=== PATIENT | female | born 1970 | race Caucasian/White ===

== ENCOUNTER 2020-05-11 16:13 | Inpatient (IN) | payer OTHER ==
[2020-05-11] MEDS ORDERED: LORazepam 2 MG/ML INJ IV PRN ×3 (16:46)
[2020-05-11] MEDS ORDERED: THIAMINE 100 MG/ML 2 ML VIAL IM STA (16:46)
[2020-05-11] MEDS ORDERED: SODIUM CHLORIDE 0.9% 1,000 ML with MVI, ADULT NO.4 WITH VIT K 10 ML, THIAMINE 100 MG, F... IV ONE ×4 (16:46)
--- NOTE | 2020-05-11 16:46 | ED ---
General Adult HPI - General Chief complaint: Abdominal Pain Stated complaint: GI Bleed Time Seen by Provider: 05/11/20 16:15 Source: patient, EMS, RN notes reviewed, old records reviewed Mode of arrival: EMS Limitations: no limitations - History of Present Illness Initial comments: This is a 49-year-old female presents emergency department from [facility]. Patient presented thereafter she had some hematemesis per patient is an occasional drinker but she does have a history of cirrhosis and ascites in the past. Patient states currently she has no symptoms. CAT scan it came with her didn't mention varices as well as some possible blood in the stomach. Patient states she did drink a little bit yesterday woke up today vomited times one and it was bright red blood and she states is quite a bit. Patient denies any chest pain difficulty breathing shortest breath. Patient was tachycardic at the other hospital and remains tachycardic currently. Patient denies any recent fever chills or cough. Patient denies any abdominal pain. Patient denies any recent diarrhea. - Related Data Allergies Allergy/AdvReac Type Severity Reaction Status Date / Time No Known Allergies Allergy Verified 05/11/20 16:27 Review of Systems ROS Statement: Those systems with pertinent positive or pertinent negative responses have been documented in the HPI. ROS Other: All systems not noted in ROS Statement are negative. Past Medical History Additional Past Medical History / Comment(s): liver disease, stage three 3 renal disease, History of Any Multi-Drug Resistant Organisms: None Reported Past Surgical History: No Surgical Hx Reported Past Psychological History: No Psychological Hx Reported Smoking Status: Current every day smoker Past Alcohol Use History: Occasional Past Drug Use History: None Reported General Exam - General Exam Comments Initial Comments: GENERAL: Patient is well-developed and well-nourished. Patient is nontoxic and well- hydrated and is in no acute distress. ENT: Neck is soft and supple. No significant lymphadenopathy is noted. Oropharynx is clear. Moist mucous membranes. Neck has full range of motion without eliciting any pain. EYES: The sclera were anicteric and conjunctiva were pink and moist. Extraocular movements were intact and pupils were equal round and reactive to light. Eyelids were unremarkable. PULMONARY: Unlabored respirations. Good breath sounds bilaterally. No audible rales rhonchi or wheezing was noted. CARDIOVASCULAR: Patient is tachycardic at 130 bpm ABDOMEN: Soft and nontender with normal bowel sounds. No palpable organomegaly was noted. There is no palpable pulsatile mass. SKIN: Skin is clear with no lesions or rashes and otherwise unremarkable. NEUROLOGIC: Patient is alert and oriented x3. Cranial nerves II through XII are grossly intact. Motor and sensory are also intact. Normal speech, volume and content. Symmetrical smile. MUSCULOSKELETAL: Normal extremities with adequate strength and full range of motion. No lower extremity swelling or edema. No calf tenderness. LYMPHATICS: No significant lymphadenopathy is noted PSYCHIATRIC: Normal psychiatric evaluation. Limitations: no limitations Course Vital Signs 05/11/20 05/11/20 16:16 16:34 Temperature 98.9 F Pulse Rate 125 H 123 H Respiratory 18 Rate Blood Pressure 121/70 O2 Sat by Pulse 97 Oximetry Medical Decision Making - Medical Decision Making I spoke with Dr. Rodriguez he agreed to admit the patient admitted the patient I wrote admitting orders did serial CBCs and I consult Dr. Dewitt and I put the patient on a CIWA protocol. Patient was also given fluids in the emergency department. Disposition Clinical Impression: Hematemesis, Cirrhosis, Ascites Disposition: ADMITTED IP TO THIS HOSP Referrals: None,Stated [Primary Care Provider] - 1-2 days Time of Disposition: 16:46
[2020-05-11] MEDS ORDERED: SODIUM CHLORIDE 0.9% 1,000 ML IV ONE (16:47)
[2020-05-11] MEDS ORDERED: LORazepam 2 MG/ML INJ IV STA (16:47)
[2020-05-11 17:18] LABS: Basophils # (A) 0.1 k/uL (0-0.2); Basophils % (A) 1 %; Eosinophils # (A) 0.1 k/uL (0-0.7); Eosinophils % (A) 1 %; HGB 9.5 gm/dL (11.4-16.0); Lymphocytes % (A) 10 %; MCH 31.5 pg (25.0-35.0); MCHC 31.5 g/dL (31.0-37.0); Macrocytosis Slight; Mean Platelet Volume 10.2; Monocytes # (A) 0.6 k/uL (0-1.0); Monocytes % (A) 6 %; Neutrophils # (A) 7.6 k/uL (1.3-7.7); Neutrophils % (A) 81 %; Platelet Count 212 k/uL (150-450); RBC 3.01 m/uL (3.80-5.40); RDW 15.8 % (11.5-15.5); WBC 9.4 k/uL (3.8-10.6)
[2020-05-11] MEDS ORDERED: HYDROmorphone 0.5 MG/0.5 ML SYRINGE IVP PRN (18:36)
[2020-05-11] MEDS ORDERED: TEMAZEPAM 15 MG CAP PO PRN (18:36)
--- NOTE | 2020-05-11 19:47 | HP ---
HISTORY AND PHYSICAL DATE OF SERVICE: 05/11/2020 CHIEF COMPLAINT: Abdominal pain. HISTORY OF PRESENT ILLNESS: This 49-year-old woman with a past medical history of chronic liver disease since 2018, history of stage III renal disease, being followed by no primary physician in the outpatient setting, apparently has a history of some alcohol intake. The patient today presented to [facility] with complaints of upper GI bleeding, about half a cup of blood, which was , and the patient underwent a CT scan which showed features of cirrhosis of the liver and ascites as well as esophageal varices. The patient was transferred to [facility] for further evaluation and treatment. There is no history of any fever, rigor or chills. No history of headache, loss of consciousness, seizures. Hemoglobin here is 9.5. PAST MEDICAL HISTORY: History of chronic liver disease, history of stage III renal disease. MEDICATIONS: Aldactone 25 mg daily p.r.n. ALLERGIES: NONE. FAMILY HISTORY: No history of heart disease or strokes in the family. SOCIAL HISTORY: Occasional alcohol and previous history of smoking. REVIEW OF SYSTEMS: ENT: No diminished hearing. No diminished vision. CARDIOVASCULAR SYSTEM: No angina, palpitations. RESPIRATORY SYSTEM: As mentioned earlier. GI: No nausea, vomiting. : No dysuria or retention. NERVOUS SYSTEM: No numbness, weakness. ALLERGY/IMMUNOLOGY: No asthma, hayfever. MUSCULOSKELETAL: As mentioned earlier. HEMATOLOGY/ONCOLOGY: No history of anemia. ENDOCRINE: No history of diabetes, hypothyroidism. CONSTITUTIONAL: As mentioned earlier. DERMATOLOGY: Negative. RHEUMATOLOGY: Negative. PSYCHIATRY: As mentioned earlier. PHYSICAL EXAMINATION: Patient is alert and oriented x3. Pulse is 125, blood pressure 121/70, respiration 18, temperature 98.9, pulse ox 97% on room air. HEENT: Conjunctivae pale. Oral mucosa moist. NECK: No jugular venous distention. No carotid bruit. No lymph node enlargement. CARDIOVASCULAR SYSTEM: S1, S2 muffled. No S3. No S4. RESPIRATORY SYSTEM: Breath sounds diminished at the bases. No rhonchi. No crackles. ABDOMEN: Soft, obese. No mass palpable. Flanks are dull. No significant ascites detected. LEGS: No edema. No swelling. NERVOUS SYSTEM: Higher functions as mentioned earlier. Moves all 4 limbs. No focal motor or sensory deficit. LYMPHATICS: No lymph node palpable in neck, axillae or groin. SKIN: No ulcer, rash, bleeding. JOINTS: No active deforming arthropathy. LABS: WBC 9.4, hemoglobin 9.5. ASSESSMENT: 1. Acute gastrointestinal bleed, possibly esophageal variceal bleeding with acute blood loss anemia secondary to cirrhosis of liver. 2. Cirrhosis liver, possibly secondary to ETOH. 3. History of stage III renal disease. 4. History of nicotine dependence. 5. History of ETOH. RECOMMENDATIONS AND DISCUSSION: In this 49-year-old woman who presented with multiple complex medical issues, we will monitor the patient closely. I would recommend proton pump inhibitors. Otherwise, gastroenterology consultation. Possible endoscopies. Repeat CBC q.6 and transfuse if the patient's hemoglobin is less than 7. Prognosis is guarded because of multiple complex medical issues. Recommend ETOH cessation. We will watch for alcohol withdrawal symptoms. I also recommend outpatient rehab per Social Work services. Prognosis guarded because of multiple complex medical problems. Further recommendations to follow. I would recommend that the patient follow up with a primary physician on a regular basis as well. MMJESSICAL / LUCYN: [id number] / MTDD
[2020-05-11] MEDS: SODIUM CHLORIDE 0.9% 1,000 ML IV SCH (22:05)
[2020-05-11] MEDS: PANTOPRAZOLE 40 MG/10 ML VIAL IVP SCH (22:06)
[2020-05-11 23:20] LABS: Appearance,Urine Clear (Clear); Bilirubin,Urine Negative (Negative); Blood,Urine Negative (Negative); Color,Urine Yellow; Glucose,Urine (UA) Negative (Negative); Ketones,Urine Trace (Negative); Leukocyte Esterase,Urine Negative (Negative); Nitrite,Urine Negative (Negative); Protein,Urine Negative (Negative); Specific Gravity,Urine 1.023 (1.001-1.035); Urobilinogen,Urine <2.0 mg/dL (<2.0)
[2020-05-11 23:25] LABS: HCT 27.3 % (34.0-46.0); HGB 8.8 gm/dL (11.4-16.0); MCH 33.1 pg (25.0-35.0); MCHC 32.3 g/dL (31.0-37.0); MCV 102.5 fL (80.0-100.0); Macrocytosis Moderate; Platelet Count 198 k/uL (150-450); RBC 2.66 m/uL (3.80-5.40); WBC 8.2 k/uL (3.8-10.6)
[2020-05-11 23:47] LABS: ALT 17 U/L (4-34); AST 78 U/L (14-36); African American GFR (CKD) >90 (>60 ml/min/1.73 sqM); Albumin 2.6 g/dL (3.5-5.0); Alkaline Phosphatase 89 U/L (38-126); Anion Gap 6 mmol/L; Blood Urea Nitrogen 22 mg/dL (7-17); Calcium 7.9 mg/dL (8.4-10.2); Carbon Dioxide 26 mmol/L (22-30); Chloride 103 mmol/L (98-107); Glucose 82 mg/dL (74-99); Non-African American GFR(CKD) >90 (>60 ml/min/1.73 sqM); Potassium 3.9 mmol/L (3.5-5.1); Sodium 135 mmol/L (137-145); Total Bilirubin 2.1 mg/dL (0.2-1.3); Total Protein 6.1 g/dL (6.3-8.2)
[2020-05-12 05:57] LABS: Anisocytosis Slight; Basophils # (A) 0.1 k/uL (0-0.2); Basophils % (A) 1 %; Eosinophils # (A) 0.2 k/uL (0-0.7); Eosinophils % (A) 3 %; HCT 25.3 % (34.0-46.0); HGB 8.7 gm/dL (11.4-16.0); Hypochromasia Slight; Lymphocytes # (A) 1.5 k/uL (1.0-4.8); Lymphocytes % (A) 21 %; MCH 35.3 pg (25.0-35.0); MCHC 34.5 g/dL (31.0-37.0); MCV 102.4 fL (80.0-100.0); Macrocytosis Moderate; Mean Platelet Volume 8.2; Monocytes # (A) 0.5 k/uL (0-1.0); Monocytes % (A) 7 %; Neutrophils # (A) 5.1 k/uL (1.3-7.7); Neutrophils % (A) 68 %; Platelet Count 179 k/uL (150-450); RBC 2.47 m/uL (3.80-5.40); RDW 16.5 % (11.5-15.5); WBC 7.4 k/uL (3.8-10.6)
[2020-05-12] MEDS: THIAMINE 100 MG TAB PO SCH ×2 (06:06→17:19)
[2020-05-12 06:10] LABS: African American GFR (CKD) >90 (>60 ml/min/1.73 sqM); Anion Gap 6 mmol/L; Blood Urea Nitrogen 22 mg/dL (7-17); Calcium 7.9 mg/dL (8.4-10.2); Carbon Dioxide 26 mmol/L (22-30); Chloride 104 mmol/L (98-107); Glucose 73 mg/dL (74-99); Non-African American GFR(CKD) 90 (>60 ml/min/1.73 sqM); Potassium 3.7 mmol/L (3.5-5.1); Sodium 136 mmol/L (137-145)
--- NOTE | 2020-05-12 07:36 | XR ---
EXAMINATION TYPE: XR chest 1V portable DATE OF EXAM: 05/12/2020 COMPARISON: None INDICATION: CHF, short of breath TECHNIQUE: Single frontal view of the chest is obtained. FINDINGS: The heart size is normal. The pulmonary vasculature is normal. The lungs are clear. IMPRESSION: 1. No acute pulmonary process.
[2020-05-12] MEDS: NICOTINE 14MG/24HR PATCH TRANSDERM SCH (09:01)
[2020-05-12] MEDS: PANTOPRAZOLE 40 MG/10 ML VIAL IVP SCH ×2 (09:01→21:38)
[2020-05-12 09:10] LABS: INR 1.4 (<1.2); Prothrombin Time 14.1 sec (9.0-12.0)
--- NOTE | 2020-05-12 16:14 | PN ---
PROGRESS NOTE DATE OF SERVICE: 05/12/2020 This 49-year-old woman who was admitted with upper GI bleed had possible underlying cirrhosis of the liver. A chest x-ray which was reviewed personally by me showed no acute abnormality. Gastroenterology following the patient closely. Recommending possible endoscope tomorrow. Hemoglobin is 8.7. INR is 1.5. AST, ALT is also noted elevated. PHYSICAL EXAMINATION: Alert and oriented x3. Pulse is 93, blood pressure 91/48, respirations 16, temperature 98.2, pulse ox 97% on room air. HEENT: Conjunctivae pale. Oral mucosa moist. NECK: No jugular venous distention. No carotid bruit. No lymph node enlargement. CARDIOVASCULAR: S1, S2 muffled. RESPIRATORY: Breath sounds diminished at the bases. No rhonchi. No crackles. ABDOMEN: Soft, obese, nontender. No mass palpable. LEGS: No edema. No swelling. NERVOUS SYSTEM: No focal deficits LABS: Hemoglobin 8.7, sodium 136. Other labs are noted. ASSESSMENT: 1. Acute gastrointestinal bleed, possibly esophageal variceal bleeding with acute blood loss anemia secondary to cirrhosis liver. 2. Cirrhosis of the liver, possibly secondary to EtOH. 3. History of stage 3 renal disease. 4. History of nicotine dependence. 5. History of EtOH. 6. Hyponatremia. 7. Elevated bilirubin and AST with alcoholic hepatitis. 8. Hypoalbuminemia with mild protein calorie malnutrition. 9. Mild coagulopathy secondary to chronic liver disease. 10.Increased MCV. 11.FULL CODE. RECOMMENDATIONS AND DISCUSSION: This 49-year-old woman who presented with multiple complex medical issues, we will monitor the patient closely. Continue CIWA protocol. Continue the rest of medication. Endoscopies. Monitor hemoglobin closely. Prognosis guarded. Further recommendations to follow. MMODL / IJN: [id number] /
--- NOTE | 2020-05-12 16:20 | CONS ---
CONSULTATION DATE OF SERVICE: May 12, 2020 REASON FOR CONSULTATION: Acute upper gastrointestinal bleed. HISTORY OF PRESENT ILLNESS: The patient is a 49-year-old pleasant white female with history of heavy alcohol abuse in the past, diagnosed with alcoholic cirrhosis of the liver 2 years ago, presents to the hospital with an episode of hematemesis yesterday. She thinks she had moderate amount of bright red blood in the emesis and she became concerned and hence came to the emergency room and subsequently admitted to the hospital for further evaluation. She did have a CT of the abdomen and pelvis done at [facility] that showed evidence of liver cirrhosis with a 1 cm lesion in the right lobe of the liver and evidence of esophageal varices. The patient never had GI bleed in the past. She has quit drinking about 2 years ago, but lately has been doing on and off once a week or so. She reports no abdominal pain. No further episodes of nausea, vomiting since being in the hospital. Last hemoglobin was 9.5 g/dL. PAST MEDICAL HISTORY: Cirrhosis of the liver related to alcohol use, chronic kidney disease. PAST SURGICAL HISTORY: Paracentesis 2 years ago. MEDICATIONS AT HOME: Aldactone 25 mg daily as needed. ALLERGIES: None. SOCIAL HISTORY: No smoking. Alcohol use intermittently as described above. Has remote history of heavy alcohol use which she quit in 2018. REVIEW OF SYSTEMS: CARDIOPULMONARY: No chest pain or shortness of breath. GENITOURINARY: No dysuria or hematuria. MUSCULOSKELETAL: Unremarkable. SKIN: Unremarkable. ENDOCRINE: Unremarkable. PSYCHIATRIC: Unremarkable. NEUROLOGY: Unremarkable. ENT/VISION: Unremarkable. HEMATOLOGY: Mild anemia. CONSTITUTIONAL: No recent weight loss. No fever, chills, night sweats. PHYSICAL EXAMINATION: Blood pressure 117/72, pulse rate 95, temperature 98.2. HEENT EXAMINATION: Unremarkable. Conjunctivae pale. Sclerae anicteric. Oral cavity, no lesions. NECK: No JVD or lymph node enlargement. CHEST: Clear to auscultation. HEART: Regular rate and rhythm. ABDOMEN: Soft, it was nontender, nondistended. Bowel sounds are positive. No organomegaly. EXTREMITIES: No pedal edema. NEURO: She is alert and oriented x3. No focal deficits. LABS: WBC 9.4, hemoglobin 9.5, platelets 212. INR 1.4. Platelets are 179. BUN 22, creatinine 0.78. AST, ALT 78 and 17 respectively. T bilirubin 2.1 and alkaline phosphatase is 89. Today, hemoglobin is 8.7. IMPRESSION: 1. Acute upper gastrointestinal bleed in this lady with history of cirrhosis of the liver secondary to alcohol use. Rule out esophageal variceal bleeding. Patient had only one episode of hematemesis. Hemoglobin stable at 8.7 g/dL. 2. Macrocytic anemia. 3. Mild coagulopathy secondary to chronic liver disease. 4. Elevated LFTs and mild jaundice secondary to alcoholic liver disease. RECOMMENDATIONS: 1. Start her on a clear liquid diet. 2. Continue Protonix 40 mg twice daily. 3. Schedule for EGD tomorrow. Discussed with the patient, risks, benefits and complications and she is agreeable to it. 4. Monitor CBC and transfuse if the hemoglobin is less than 7. 5. Abstinence from alcohol. 6. Will follow with you closely. Thank you for this consultation. PARISHL / IJN: [id number] /
[2020-05-12 20:36] LABS: Hepatitis A Antibody IgM Non-Reactive (Non-Reactive); Hepatitis B Core IgM Non-Reactive (Non-Reactive); Hepatitis B Surface Antigen Non-Reactive (Non-Reactive); Hepatitis C IgG Antibody Non-Reactive (Non-Reactive)
[2020-05-12] MEDS: SODIUM CHLORIDE 0.9% 1,000 ML IV SCH (21:38)
[2020-05-12] MEDS: traMADol 50 MG TAB PO PRN (21:39)
[2020-05-13] MEDS: THIAMINE 100 MG TAB PO SCH ×2 (04:03→17:24)
[2020-05-13] MEDS ORDERED: PROPOFOL 10 MG/ML 20 ML VIAL IV ONE (06:55)
[2020-05-13] MEDS ORDERED: LIDOCAINE 1% INJ 10MG/ML (20 ML MDV) ONE (06:55)
[2020-05-13] MEDS ORDERED: IV FLUID CONTINUATION 1,000 ML IV ONE (07:11)
--- NOTE | 2020-05-13 07:23 | P.PCN ---
Date of Procedure: 05/13/20 Procedure(s) Performed: BRIEF HISTORY: Patient is a 49-year-old, pleasant, white female scheduled for an upper endoscopy as a part of evaluation of acute upper GI bleed. She was admitted to the hospital with severe hematemesis. History of liver cirrhosis diagnosed 2 years ago related to alcohol use. . PROCEDURE PERFORMED: Esophagogastroduodenoscopy with biopsy. PREOPERATIVE DIAGNOSIS: Acute upper GI bleed. IV sedation per anesthesia. PROCEDURE: After informed consent was obtained, the patient was brought into the endoscopy unit. IV sedation was administered by Anesthesia under continuous monitoring. Initially the Olympus GIF-140 video endoscope was inserted into the mouth. Esophagus intubated without any difficulty. It was gradually advanced into the stomach and duodenum and carefully examined. The bulb and the second part of the duodenum appeared normal. The scope at this time was withdrawn to the stomach, adequately insufflated with air, and upon careful examination, mucosa of the antrum, body, had mild gastritis and biopsies were done from this area. The cardia and the fundus appeared normal. The scope was then withdrawn into the esophagus. The GE junction was located at 34 cm from the incisors. Small to moderate size hiatal hernia noted. There was evidence of small nonbl eeding esophageal varices and LA grade a reflux esophagitis and the patient tolerated the procedure well. IMPRESSION: 1. No active upper GI bleeding. 2. Small nonbleeding esophageal varices. 3. LA grade B reflux esophagitis and small hiatal hernia. 4. Mild antral gastritis. RECOMMENDATIONS: The findings of this examination were discussed with the patient. She was advised to follow with the biopsy results. Diet will be advanced as tolerated. Continue with Protonix 40 mg daily. She can be discharged home today. Outpatient follow-up in 2-3 weeks
[2020-05-13 07:58] LABS: ALT 15 U/L (4-34); AST 78 U/L (14-36); African American GFR (CKD) >90 (>60 ml/min/1.73 sqM); Albumin 2.3 g/dL (3.5-5.0); Alkaline Phosphatase 85 U/L (38-126); Anion Gap 4 mmol/L; Blood Urea Nitrogen 14 mg/dL (7-17); Calcium 7.8 mg/dL (8.4-10.2); Carbon Dioxide 24 mmol/L (22-30); Chloride 105 mmol/L (98-107); Glucose 74 mg/dL (74-99); Non-African American GFR(CKD) >90 (>60 ml/min/1.73 sqM); Potassium 3.3 mmol/L (3.5-5.1); Sodium 133 mmol/L (137-145); Total Bilirubin 2.2 mg/dL (0.2-1.3); Total Protein 5.5 g/dL (6.3-8.2)
[2020-05-13 08:10] LABS: Anisocytosis Slight; Basophils % (A) 1 %; Eosinophils # (A) 0.2 k/uL (0-0.7); Eosinophils % (A) 4 %; HGB 7.9 gm/dL (11.4-16.0); Lymphocytes # (A) 1.2 k/uL (1.0-4.8); Lymphocytes % (A) 19 %; MCH 32.5 pg (25.0-35.0); MCHC 31.5 g/dL (31.0-37.0); Macrocytosis Moderate; Mean Platelet Volume 10.9; Monocytes # (A) 0.4 k/uL (0-1.0); Monocytes % (A) 7 %; Neutrophils # (A) 4.2 k/uL (1.3-7.7); Neutrophils % (A) 68 %; Platelet Count 178 k/uL (150-450); RBC 2.43 m/uL (3.80-5.40); WBC 6.2 k/uL (3.8-10.6)
[2020-05-13] MEDS: NICOTINE 14MG/24HR PATCH TRANSDERM SCH (10:19)
[2020-05-13] MEDS: PANTOPRAZOLE 40 MG/10 ML VIAL IVP SCH ×2 (10:19→20:55)
[2020-05-13] MEDS ORDERED: POTASSIUM CHLORIDE ER 20 MEQ TAB.ER PO STA (10:30)
[2020-05-13] MEDS: SODIUM CHLORIDE 0.9% 1,000 ML IV SCH (12:06)
--- NOTE | 2020-05-13 15:57 | PN ---
PROGRESS NOTE DATE OF SERVICE: 05/13/2020 This 49-year-old woman who was admitted with upper GI bleed and multiple other medical problems underwent EGD by Dr. Tucker, showed no active GI bleeding, small nonbleeding esophageal varices noted and grade B reflux esophagitis, mild antral gastritis also noted. No chest pain. No palpitations. No fever. PHYSICAL EXAMINATION: Alert and oriented x3. Pulse 83, blood pressure 99/62, respiration 18, temperature 97.7, pulse ox 95% on room air. HEENT: Conjunctivae normal. NECK: No jugular venous distention. CARDIOVASCULAR: S1, S2 muffled. RESPIRATORY: Breath sounds diminished at the bases. No rhonchi, no crackles. ABDOMEN: Soft, nontender. No mass palpable. LEGS: No edema. No swelling. NERVOUS SYSTEM: No focal deficits. LABS: Hemoglobin 7.9, sodium 133, potassium 3.3, calcium 7.8. Bilirubin is 2.2. ASSESSMENT: 1. Acute gastrointestinal bleed, possibly cellulitis with bleeding with acute blood loss anemia secondary to cirrhosis, status post EGD. 2. EGD showing esophageal varices and grade B reflux esophagitis and mild antral gastritis. 3. Acute blood loss anemia. 4. Cirrhosis of the liver, possibly secondary to EtOH. 5. History of stage 3 renal disease. 6. History of nicotine dependence. 7. History of EtOH. 8. Hyponatremia. 9. Elevated bilirubin and AST, alcoholic hepatitis. 10.Hypoalbuminemia with mild protein calorie malnutrition. 11.Mild coagulopathy secondary to chronic liver disease. 12.Hypocalcemia. 13.Increased MCV. 14.FULL CODE. RECOMMENDATIONS AND DISCUSSION: I recommend to continue current medication, continue monitoring and symptomatic treatment. Otherwise, at this time I would recommend continue with current medications. I would also recommend one unit transfusion for symptomatic anemia. Hemoglobin has dropped to 7.9. The prognosis guarded. Further recommendations to follow. MMODL / IJN: [id number] /
[2020-05-13] MEDS ORDERED: FUROSEMIDE 10 MG/ML 2 ML VIAL IV ONE (17:22)
--- NOTE | 2020-05-13 19:46 | MR ---
EXAMINATION TYPE: MR liver wo/w con DATE OF EXAM: 05/13/2020 COMPARISON: CT scan 03/10/2021. HISTORY: Cirrhosis, liver lesion CONTRAST: Standard multiplanar, multisequence MRI departmental protocol utilizing 6.5 mL intravenous Gadavist g adolinium contrast. Multiplanar multiecho imaging of the abdomen was performed without and with IV contrast gadolinium 6. 5 mL. liver shows no focal defect. The bile ducts are not dilated. There are multiple gallstones. Gallbladd er measures 3.60 m in diameter. There is no gallbladder wall thickening. There is no evidence of panc reatic mass. There is bilateral pleural effusions. Heart is probably enlarged. There is moderate abdo cesar ascites fluid. Pancreatic duct is not dilated. The spleen appears intact. Liver measures 16.5 c m in length. Kidneys have normal size. There is no hydronephrosis. There is no sign of retroperitoneal adenopathy. There appears to be some proximal small bowel wall thickening. IMPRESSION: No focal liver defect. No evidence of a discrete liver mass. No dilated ducts. Abdominal ascites and bilateral pleural effusions. Pleural fluid appears new compared to old exam. As cites probably not changed. Cholelithiasis. Small bowel mild wall thickening suggestive of some nonspecific enteritis.
[2020-05-13] MEDS: traMADol 50 MG TAB PO PRN (20:55)
[2020-05-14] MEDS: SODIUM CHLORIDE 0.9% 1,000 ML IV SCH (06:23)
[2020-05-14] MEDS: THIAMINE 100 MG TAB PO SCH (06:23)
[2020-05-14 07:12] LABS: Anisocytosis Slight; Basophils # (A) 0.1 k/uL (0-0.2); Basophils % (A) 1 %; Eosinophils # (A) 0.4 k/uL (0-0.7); Eosinophils % (A) 5 %; HCT 27.4 % (34.0-46.0); HGB 8.9 gm/dL (11.4-16.0); Lymphocytes # (A) 1.1 k/uL (1.0-4.8); Lymphocytes % (A) 17 %; MCHC 32.5 g/dL (31.0-37.0); MCV 101.4 fL (80.0-100.0); Macrocytosis Moderate; Mean Platelet Volume 9.9; Monocytes # (A) 0.5 k/uL (0-1.0); Monocytes % (A) 8 %; Neutrophils # (A) 4.4 k/uL (1.3-7.7); Neutrophils % (A) 68 %; Platelet Count 191 k/uL (150-450); WBC 6.5 k/uL (3.8-10.6)
[2020-05-14 07:20] LABS: African American GFR (CKD) >90 (>60 ml/min/1.73 sqM); Anion Gap 5 mmol/L; Blood Urea Nitrogen 10 mg/dL (7-17); Calcium 7.9 mg/dL (8.4-10.2); Carbon Dioxide 26 mmol/L (22-30); Chloride 103 mmol/L (98-107); Glucose 75 mg/dL (74-99); Non-African American GFR(CKD) >90 (>60 ml/min/1.73 sqM); Potassium 3.1 mmol/L (3.5-5.1); Sodium 134 mmol/L (137-145)
[2020-05-14] MEDS: POTASSIUM CHLORIDE ER 20 MEQ TAB.ER PO SCH ×2 (08:42→10:07)
[2020-05-14] MEDS: NICOTINE 14MG/24HR PATCH TRANSDERM SCH (08:42)
[2020-05-14] MEDS: PANTOPRAZOLE 40 MG/10 ML VIAL IVP SCH (08:42)
[2020-05-14 08:47] VITALS: BP 94/59; PULSE 84; RESP 14; TEMP 98.3
[2020-05-14] MEDS ORDERED: POTASSIUM CHLORIDE ER 20 MEQ TAB.ER PO STA (11:49)
--- NOTE | 2020-05-14 21:09 | DS ---
DISCHARGE SUMMARY DATE OF SERVICE: 05/14/2020 FINAL DIAGNOSES: 1. Acute gastrointestinal bleed, possibly secondary to variceal bleeding and acute blood loss anemia. 2. Status post EGD showing esophageal varices and grade B reflux esophagitis and mild antral gastritis. 3. Cirrhosis of the liver, possibly secondary to ETOH. 4. History of stage III renal disease. 5. History of nicotine dependence. 6. Hyponatremia. 7. History of ETOH. 8. Increased bilirubin, AST, alcoholic hepatitis. 9. Hypoalbuminemia with mild protein calorie malnutrition. 10.Mild coagulopathy secondary to chronic liver disease. 11.Hypocalcemia. 12.Increased MCV. 13.FULL CODE. DISCHARGE DISPOSITION: The patient being discharged in stable with guarded prognosis. HISTORY OF PRESENT ILLNESS: This 49-year-old woman with past medical history of multiple medical problems admitted with GI bleed. Patient treated symptomatically. EGD showed esophageal varices, but no active bleeding. Liver MRI was noted and hemoglobin was closely monitored which remained stable at 8.9 at this time. The patient was transfused 1 unit because of concerns of gastrointestinal bleed. Patient improved significantly. Potassium 3.9. Recommend outpatient followup with Dr. Ivan Brito in [place]. On exam, vitals signs stable. Cardiovascular S1, S2. Abdomen soft. Nervous system: No focal deficits. DISCHARGE ADVICE AND MEDICATIONS: 1. Diet is cardiac. 2. Activity limited until followup. 3. Follow up with Dr. Petr Tucker in 2-3 days. 4. Follow up with Dr. Ivan Brito. 5. CBC, BMP. DISCHARGE MEDICATIONS: 1. Aldactone 50 mg p.o. b.i.d. 2. Folic acid 1 mg p.o. daily. 3. Habitrol 14 daily. 4. Multivitamins 1 p.o. daily. 5. Thiamine 100 mg p.o. daily. CBC and BMP with Dr. Ivan Brito. Once again, the patient discharged in stable condition. Guarded prognosis. MMODL / IJN: [id number] /
== END 2020-05-14 13:32 | disposition home or self-care (01) | DRG 432 ==
LOC: EC 16:13 → 3SCARD 16:47
PROVIDERS: ADMIT Hospitalist; ATTEND Hospitalist
PROC: 30233N1 Transfusion of Nonautologous Red Blood Cells into Peripheral Vein, Percutaneous Approach (ICD-10-PCS; 2020-05-13)
PROC: 0DB78ZX Excision of Stomach, Pylorus, Via Natural or Artificial Opening Endoscopic, Diagnostic (ICD-10-PCS; principal; 2020-05-13 08:25)
DX: K70.31 Alcoholic cirrhosis of liver with ascites (principal); I85.11 Secondary esophageal varices with bleeding; D62 Acute posthemorrhagic anemia; E44.1 Mild protein-calorie malnutrition; E87.1 Hypo-osmolality and hyponatremia; D68.4 Acquired coagulation factor deficiency; N18.30 Chronic kidney disease, stage 3 unspecified; Z20.822 Contact with and (suspected) exposure to COVID-19; K21.00 Gastro-esophageal reflux disease with esophagitis, without bleeding; F17.200 Nicotine dependence, unspecified, uncomplicated; D53.9 Nutritional anemia, unspecified; K44.9 Diaphragmatic hernia without obstruction or gangrene; E83.51 Hypocalcemia; K29.70 Gastritis, unspecified, without bleeding; K70.11 Alcoholic hepatitis with ascites; Z79.899 Other long term (current) drug therapy
CPT/HCPCS: 36415; 43239; 71045; 74183; 80048; 80053; 80074; 81003; 82105; 85025; 85027; 85610; 86850; 86900; 86901; 86920; 87635; 96361; 96365; 96372; 96375; 99285

== ENCOUNTER 2020-07-01 19:05 | Inpatient (IN) | payer MEDICARE, OTHER ==
[2020-07-01] MEDS ORDERED: PANTOPRAZOLE 40 MG/10 ML VIAL IVP STA (19:41)
[2020-07-01] MEDS ORDERED: LORazepam 2 MG/ML INJ IV STA (19:49)
[2020-07-01] MEDS ORDERED: OCTREOTIDE 100 MCG/ML INJ IVP STA (19:52)
--- NOTE | 2020-07-01 19:52 | ED ---
General Adult HPI - General Chief complaint: GI Bleed Stated complaint: vomiting blood Time Seen by Provider: 07/01/20 19:09 Source: EMS Mode of arrival: EMS Limitations: no limitations - History of Present Illness Initial comments: Dictation was produced using [employer] dictation software. please excuse any grammatical, word or spelling errors. This patient was cared for during a federal and state declared state of emergency secondary to Covid 19 Chief Complaint: 49-year-old female past medical history of esophageal varices presents with brief episode of hematemesis History of Present Illness: 49-year-old female she is past medical history of esophageal varices. Patient's history of liver disease. She is to get paracenteses. She states that today she had an episode of hematemesis with bright red blood per she states that the blood measured 2 approximately one to 2 tablespoons. She had only one episode. Patient denies any dark or black stools. Patient states she does feel some fullness in her stomach. She does not have any abdominal pain. States that she does not that her skin looks more pale than usual. The ROS documented in this emergency department record has been reviewed and confirmed by me. Those systems with pertinent positive or negative responses have been documented in the HPI. All other systems are other negative and/or noncontributory. PHYSICAL EXAM: General Impression: Alert and oriented x3, not in acute distress HEENT: Normocephalic atraumatic, extra-ocular movements intact, pupils equal and reactive to light bilaterally, mucous membranes moist. Cardiovascular: Tachycardic Chest: Able to complete full sentences, no retractions, no tachypnea Abdomen: abdomen soft, non-tender, non-distended, no organomegaly Musculoskeletal: Pulses present and equal in all extremities, no peripheral edema Motor: no focal deficits noted Neurological: CN II-XII grossly intact, no focal motor or sensory deficits noted Skin: Intact with no visualized rashes Psych: Normal affect and mood ED course: 49-year-old female past nuchal history of esophageal varices presents with brief episode of hematemesis. Chart review was performed. Patient had an upper endoscopy that was performed last month by Dr. Adam. During that time they did not note any active bleeding but there was note of nonbleeding e sophageal varices. Vital signs upon arrival shows tachycardia 126, rest of vital signs within acceptable limits. She is well-appearing at bedside and not actively nauseated or throwing up. EKG interpretation: Ventricular rate 126, sinus tachycardia,. 120, QRS 70, QTc 466. No ME prolongation, no QTC prolongation, no ST or T-wave changes noted. Overall, this EKG is unremarkable Laboratory evaluation obtained. Mild leukocytosis, 0.6. Hemoglobin stable at 8.4. This is around her baseline. Platelets of 246. Coag panel shows INR 1.6. Sodium 131, rest metabolic panel is unremarkable. Lactic acidosis 2.4. This is all likely secondary to some degree of liver failure. Coronavirus is ne gative. Patient reexamined at 9:00 PM she is resting comfortably with no signs of extremities. She's not had any episodes of recurrent hematemesis. Nonetheless, patient has history of esophageal varices. There is concern that perhaps the event occurred earlier was a sentinel bleed. Case discussed with Dr. Willingham who is willing to accept patients care for admission. Patient will be disposition to intensive care unit. Case discussed Dr. Robin. - Related Data Home Medications Medication Instructions Recorded Confirmed Calcium Carbonate [Tums] 500 mg PO QID PRN 07/01/20 07/01/20 Nicotine 14Mg/24Hr Patch [Habitrol] 1 patch TRANSDERM DAILY PRN 07/01/20 07/01/20 Pantoprazole Sodium [Protonix] 20 mg PO DAILY PRN 07/01/20 07/01/20 Simethicone [Gas-X] 125 mg PO ACHS PRN 07/01/20 07/01/20 Previous Rx's Medication Instructions Recorded Folic Acid 1 mg PO DAILY #30 tablet 05/14/20 Multivitamins, Thera [Multivitamin] 1 tab PO DAILY #30 tablet 05/14/20 Spironolactone [Aldactone] 50 mg PO BID #60 tab 05/14/20 Thiamine [Vitamin B-1] 100 mg PO DAILY #30 tablet 05/14/20 Allergies Allergy/AdvReac Type Severity Reaction Status Date / Time No Known Allergies Allergy Verified 07/01/20 20:23 Review of Systems ROS Statement: Those systems with pertinent positive or pertinent negative responses have been documented in the HPI. ROS Other: All systems not noted in ROS Statement are negative. Past Medical History Additional Past Medical History / Comment(s): liver disease-patient used to get paracentesis every two weeks, patient states that she has not recieved one since dec 15, 2019, stage three 3 renal disease, History of Any Multi-Drug Resistant Organisms: None Reported Past Surgical History: No Surgical Hx Reported Past Anesthesia/Blood Transfusion Reactions: No Reported Reaction Past Psychological History: No Psychological Hx Reported Smoking Status: Current every day smoker Past Alcohol Use History: Occasional, Rare Past Drug Use History: None Reported - Past Family History Father Family Medical History: No Reported History Mother Family Medical History: No Reported History General Exam Limitations: no limitations Course Vital Signs 07/01/20 07/01/20 19:15 20:00 Temperature 98.5 F Pulse Rate 126 H 118 H Respiratory 20 20 Rate Blood Pressure 114/65 101/62 O2 Sat by Pulse 99 96 Oximetry Medical Decision Making - Lab Data Result diagrams: 07/01/20 19:45 07/01/20 19:45 Lab Results 07/01/20 07/01/20 07/01/20 Range/Units 19:45 19:45 19:45 WBC 12.6 H (3.8-10.6) k/uL RBC 2.70 L (3.80-5.40) m/uL Hgb 8.4 L (11.4-16.0) gm/dL Hct 25.9 L (34.0-46.0) % MCV 95.9 D (80.0-100.0) fL MCH 31.2 (25.0-35.0) pg MCHC 32.5 (31.0-37.0) g/dL RDW 17.3 H (11.5-15.5) % Plt Count 246 (150-450) k/uL MPV 9.3 Neutrophils % 78 % Lymphocytes % 14 % Monocytes % 6 % Eosinophils % 2 % Basophils % 0 % Neutrophils # 9.8 H (1.3-7.7) k/uL Lymphocytes # 1.7 (1.0-4.8) k/uL Monocytes # 0.7 (0-1.0) k/uL Eosinophils # 0.3 (0-0.7) k/uL Basophils # 0.0 (0-0.2) k/uL Anisocytosis Slight Macrocytosis Slight PT 16.3 H (9.0-12.0) sec INR 1.6 H (<1.2) APTT 25.7 (22.0-30.0) sec Sodium 131 L (137-145) mmol/L Potassium 3.4 L (3.5-5.1) mmol/L Chloride 97 L (98-107) mmol/L Carbon Dioxide 22 (22-30) mmol/L Anion Gap 12 mmol/L BUN 19 H (7-17) mg/dL Creatinine 0.67 (0.52-1.04) mg/dL Est GFR (CKD-EPI)AfAm >90 (>60 ml/min/1.73 sqM) Est GFR (CKD-EPI)NonAf >90 (>60 ml/min/1.73 sqM) Glucose 94 (74-99) mg/dL Plasma Lactic Acid Raza (0.7-2.0) mmol/L Calcium 8.5 (8.4-10.2) mg/dL Magnesium 1.1 L (1.6-2.3) mg/dL Total Bilirubin 2.0 H (0.2-1.3) mg/dL AST 61 H (14-36) U/L ALT 21 (4-34) U/L Alkaline Phosphatase 116 (38-126) U/L Total Protein 7.2 (6.3-8.2) g/dL Albumin 2.9 L (3.5-5.0) g/dL Coronavirus (PCR) (Not Detectd) Blood Type Blood Type Recheck Bld Type Recheck Status Antibody Screen Spec Expiration Date 07/01/20 07/01/20 07/01/20 Range/Units 19:45 19:45 20:33 WBC (3.8-10.6) k/uL RBC (3.80-5.40) m/uL Hgb (11.4-16.0) gm/dL Hct (34.0-46.0) % MCV (80.0-100.0) fL MCH (25.0-35.0) pg MCHC (31.0-37.0) g/dL RDW (11.5-15.5) % Plt Count (150-450) k/uL MPV Neutrophils % % Lymphocytes % % Monocytes % % Eosinophils % % Basophils % % Neutrophils # (1.3-7.7) k/uL Lymphocytes # (1.0-4.8) k/uL Monocytes # (0-1.0) k/uL Eosinophils # (0-0.7) k/uL Basophils # (0-0.2) k/uL Anisocytosis Macrocytosis PT (9.0-12.0) sec INR (<1.2) APTT (22.0-30.0) sec Sodium (137-145) mmol/L Potassium (3.5-5.1) mmol/L Chloride (98-107) mmol/L Carbon Dioxide (22-30) mmol/L Anion Gap mmol/L BUN (7-17) mg/dL Creatinine (0.52-1.04) mg/dL Est GFR (CKD-EPI)AfAm (>60 ml/min/1.73 sqM) Est GFR (CKD-EPI)NonAf (>60 ml/min/1.73 sqM) Glucose (74-99) mg/dL Plasma Lactic Acid Raza 2.4 H* (0.7-2.0) mmol/L Calcium (8.4-10.2) mg/dL Magnesium (1.6-2.3) mg/dL Total Bilirubin (0.2-1.3) mg/dL AST (14-36) U/L ALT (4-34) U/L Alkaline Phosphatase (38-126) U/L Total Protein (6.3-8.2) g/dL Albumin (3.5-5.0) g/dL Coronavirus (PCR) Not Detected (Not Detectd) Blood Type A Negative Blood Type Recheck A Neg Bld Type Recheck Status No Antibody Screen NEGATIVE Spec Expiration Date 07/04/20202344 Disposition Clinical Impression: Hematemesis, Esophageal varices Disposition: ADMITTED IP TO THIS [facility] Condition: Critical Referrals: None,Stated [Primary Care Provider] - 1-2 days Decision Time: 21:08
[2020-07-01 19:54] LABS: Anisocytosis Slight; Basophils % (A) 0 %; Eosinophils # (A) 0.3 k/uL (0-0.7); Eosinophils % (A) 2 %; HCT 25.9 % (34.0-46.0); HGB 8.4 gm/dL (11.4-16.0); Lymphocytes # (A) 1.7 k/uL (1.0-4.8); Lymphocytes % (A) 14 %; MCH 31.2 pg (25.0-35.0); MCHC 32.5 g/dL (31.0-37.0); Macrocytosis Slight; Mean Platelet Volume 9.3; Monocytes # (A) 0.7 k/uL (0-1.0); Monocytes % (A) 6 %; Neutrophils # (A) 9.8 k/uL (1.3-7.7); Neutrophils % (A) 78 %; Platelet Count 246 k/uL (150-450); RDW 17.3 % (11.5-15.5); WBC 12.6 k/uL (3.8-10.6)
[2020-07-01 19:57] LABS: MCV 95.9 fL (80.0-100.0)
[2020-07-01 20:03] LABS: ALT 21 U/L (4-34); AST 61 U/L (14-36); African American GFR (CKD) >90 (>60 ml/min/1.73 sqM); Albumin 2.9 g/dL (3.5-5.0); Alkaline Phosphatase 116 U/L (38-126); Anion Gap 12 mmol/L; Blood Urea Nitrogen 19 mg/dL (7-17); Calcium 8.5 mg/dL (8.4-10.2); Carbon Dioxide 22 mmol/L (22-30); Chloride 97 mmol/L (98-107); Glucose 94 mg/dL (74-99); INR 1.6 (<1.2); Magnesium 1.1 mg/dL (1.6-2.3); Non-African American GFR(CKD) >90 (>60 ml/min/1.73 sqM); Partial Thromboplastin Time 25.7 sec (22.0-30.0); Potassium 3.4 mmol/L (3.5-5.1); Prothrombin Time 16.3 sec (9.0-12.0); Sodium 131 mmol/L (137-145); Total Protein 7.2 g/dL (6.3-8.2)
[2020-07-01] MEDS ORDERED: NALOXONE 0.4 MG/ML 1 ML VIAL IV PRN (21:04)
[2020-07-01] MEDS: SODIUM CHLORIDE 0.9% 1,000 ML IV SCH (21:52)
[2020-07-01] MEDS: PANTOPRAZOLE 40 MG/10 ML VIAL IV SCH (21:52)
[2020-07-01 23:36] LABS: Glucose,Whole Blood 101 mg/dL (75-99)
--- NOTE | 2020-07-02 00:42 | P.HPIM ---
History of Present Illness H&P Date: 07/01/20 The patient is a 49-year-old female with a PMH of alcoholic cirrhosis and esophageal varices who presented to the emergency room with complaints of hematemesis. The patient reports that she was in her usual state of health until about this morning when upon awakening she felt as though she was given a gag and subsequently had a single episode of vomiting tablespoon worth of bright red blood. She became concerned due to her history of variceal bleeding and subsequently came to the emergency room. Patient reports bandlike upper abdominal discomfort throughout the day today, rated as a 3 out of 10. She denied additional complaints. The patient continues to drink alcohol with her last drink one week ago. She denied diarrhea, fever, chills, chest pain, cough, headaches, or dizziness. In the emergency room lactic acid was 2.4, magnesium 1.1, potassium 3.4, AST 61, WBC count 12.6, hemoglobin 8.4, INR 1.6, and sodium 131. Review of Systems Pertinent positives and negatives as discussed in HPI, a complete review of systems was performed and all other systems are negative. Past Medical History Additional Past Medical History / Comment(s): liver disease-patient used to get paracentesis every two weeks, patient states that she has not recieved one since dec 15, 2019, stage three 3 renal disease, History of Any Multi-Drug Resistant Organisms: None Reported Past Surgical History: No Surgical Hx Reported Past Anesthesia/Blood Transfusion Reactions: No Reported Reaction Past Psychological History: No Psychological Hx Reported Smoking Status: Current every day smoker Past Alcohol Use History: Occasional, Rare Past Drug Use History: None Reported - Past Family History Father Family Medical History: No Reported History Mother Family Medical History: No Reported History Medications and Allergies Home Medications Medication Instructions Recorded Confirmed Type Folic Acid 1 mg PO DAILY #30 tablet 05/14/20 07/01/20 Rx Multivitamins, Thera [Multivitamin] 1 tab PO DAILY #30 tablet 05/14/20 07/01/20 Rx Spironolactone [Aldactone] 50 mg PO BID #60 tab 05/14/20 07/01/20 Rx Thiamine [Vitamin B-1] 100 mg PO DAILY #30 tablet 05/14/20 07/01/20 Rx Calcium Carbonate [Tums] 500 mg PO QID PRN 07/01/20 07/01/20 History Nicotine 14Mg/24Hr Patch [Habitrol] 1 patch TRANSDERM DAILY PRN 07/01/20 History Pantoprazole Sodium [Protonix] 20 mg PO DAILY PRN 07/01/20 07/01/20 History Simethicone [Gas-X] 125 mg PO ACHS PRN 07/01/20 07/01/20 History Allergies Allergy/AdvReac Type Severity Reaction Status Date / Time No Known Allergies Allergy Verified 07/01/20 20:23 Physical Exam Vitals: Vital Signs Temp Pulse Resp BP Pulse Ox 07/01/20 20:00 118 H 20 101/62 96 07/01/20 19:15 98.5 F 126 H 20 114/65 99 Intake and Output 07/01/20 07/01/20 07/01/20 06:59 14:59 22:59 Other: Weight 54.885 kg General: non toxic, no distress, appears older than stated age, thin Derm: no unusual rashes/lesions no unusual ecchymoses, warm, dry Head: atraumatic, normocephalic, symmetric Eyes: EOMI, no lid lag, anicteric sclera, pupils equal round reactive to light ENT: Nose and ears atraumatic, no thrush, no pharyngeal erythema Neck: No thyromegaly, no cervical lymphadenopathy, trachea midline, supple Mouth: no lip lesion, mucus membranes moist Cardiovascular: S1S2 reg, no murmur, positive posterior tibial pulse bilateral, no edema, capillary refill less than 2 seconds Lungs: CTA bilateral, no rhonchi, no rales , no accessory muscle use Abdominal: soft, nontender to palpation, no guarding, no appreciable organomegaly, normal bowel sounds Ext: no gross muscle atrophy, muscle strength 5 out of 5 in all 4 extremities grossly, no contractures, Neuro: CN II-XI grossly intact, light touch intact all 4 extremities, finger to nose within normal limits, Psych: Alert, oriented, appropriate affect Results CBC & Chem 7: 07/01/20 19:45 07/01/20 19:45 Labs: Abnormal Lab Results - Last 24 Hours (Table) 07/01/20 07/01/20 07/01/20 Range/Units 19:45 19:45 19:45 WBC 12.6 H (3.8-10.6) k/uL RBC 2.70 L (3.80-5.40) m/uL Hgb 8.4 L (11.4-16.0) gm/dL Hct 25.9 L (34.0-46.0) % RDW 17.3 H (11.5-15.5) % Neutrophils # 9.8 H (1.3-7.7) k/uL PT 16.3 H (9.0-12.0) sec INR 1.6 H (<1.2) Sodium 131 L (137-145) mmol/L Potassium 3.4 L (3.5-5.1) mmol/L Chloride 97 L (98-107) mmol/L BUN 19 H (7-17) mg/dL Plasma Lactic Acid Raza (0.7-2.0) mmol/L Magnesium 1.1 L (1.6-2.3) mg/dL Total Bilirubin 2.0 H (0.2-1.3) mg/dL AST 61 H (14-36) U/L Albumin 2.9 L (3.5-5.0) g/dL 07/01/20 Range/Units 19:45 WBC (3.8-10.6) k/uL RBC (3.80-5.40) m/uL Hgb (11.4-16.0) gm/dL Hct (34.0-46.0) % RDW (11.5-15.5) % Neutrophils # (1.3-7.7) k/uL PT (9.0-12.0) sec INR (<1.2) Sodium (137-145) mmol/L Potassium (3.5-5.1) mmol/L Chloride (98-107) mmol/L BUN (7-17) mg/dL Plasma Lactic Acid Raza 2.4 H* (0.7-2.0) mmol/L Magnesium (1.6-2.3) mg/dL Total Bilirubin (0.2-1.3) mg/dL AST (14-36) U/L Albumin (3.5-5.0) g/dL Assessment and Plan Plan: Hematemesis, suspected secondary to variceal bleeding -Patient admitted to medical ICU and started on octreotide -GI consulted -Continue with gentle IV hydration -Monitor CBC, hemoglobin currently at baseline -Continue Protonix -Nothing by mouth for now Alcoholic cirrhosis -Patient strongly advised on the importance of cessation from further alcohol use Hypomagnesemia and hypokalemia -Replace and monitor Lactic acidosis, resolved DVT prophylaxis -IPCDs The patient is admitted with an anticipated greater than 2 midnight stay for evaluation of hematemesis CODE STATUS: Full Code Discussed with: Patient Anticipated discharge date: 2-[address]: home A total of 35 minutes was spent on the care of this complex patient more than 50% of the time was spent in counseling and care coordination.
[2020-07-02] MEDS ORDERED: ONDANSETRON 4 MG/2 ML VIAL IVP PRN (00:44)
[2020-07-02] MEDS ORDERED: POTASSIUM CHLORIDE 10 MEQ in WATER FOR INJECTION 1 100ML.BAG IVPB STA (01:23)
[2020-07-02] MEDS: MAGNESIUM SULFATE-D5W PMX 1 GM in DEXTROSE/WATER 1 100ML.BAG IVPB SCH ×3 (01:48→04:41)
[2020-07-02] MEDS ORDERED: POTASSIUM CHLORIDE ER 20 MEQ TAB.ER PO SCH (02:00)
[2020-07-02] MEDS ORDERED: Potassium Replacement Protocol 1 EACH MISC MISCELLANE PRN (02:53)
[2020-07-02] MEDS: OCTREOTIDE 100 MCG/ML INJ IVP SCH ×3 (03:02→20:12)
[2020-07-02] MEDS: LORazepam 2 MG/ML INJ IV PRN ×2 (03:11→20:35)
[2020-07-02] MEDS: POTASSIUM CHLORIDE 10 MEQ in WATER FOR INJECTION 1 100ML.BAG IVPB SCH ×4 (04:41→06:54)
[2020-07-02 04:59] LABS: ALT 17 U/L (4-34); AST 58 U/L (14-36); African American GFR (CKD) >90 (>60 ml/min/1.73 sqM); Albumin 2.3 g/dL (3.5-5.0); Alkaline Phosphatase 97 U/L (38-126); Anion Gap 7 mmol/L; Blood Urea Nitrogen 23 mg/dL (7-17); Calcium 7.7 mg/dL (8.4-10.2); Carbon Dioxide 25 mmol/L (22-30); Chloride 98 mmol/L (98-107); Glucose 122 mg/dL (74-99); Magnesium 2.1 mg/dL (1.6-2.3); Non-African American GFR(CKD) 84 (>60 ml/min/1.73 sqM); Potassium 3.8 mmol/L (3.5-5.1); Sodium 130 mmol/L (137-145); Total Bilirubin 1.8 mg/dL (0.2-1.3); Total Protein 5.8 g/dL (6.3-8.2)
[2020-07-02 05:01] LABS: Anisocytosis Slight; MCH 30.9 pg (25.0-35.0); MCHC 31.9 g/dL (31.0-37.0); MCV 96.8 fL (80.0-100.0); Macrocytosis Slight; Mean Platelet Volume 8.8; Platelet Count 201 k/uL (150-450); RBC 2.07 m/uL (3.80-5.40); RDW 17.8 % (11.5-15.5); WBC 10.7 k/uL (3.8-10.6)
[2020-07-02 05:04] LABS: HGB 6.4 gm/dL (11.4-16.0)
[2020-07-02] MEDS ORDERED: PHYTONADIONE 10 MG in SODIUM CHLORIDE 0.9% 50 ML IVPB STA (07:16)
--- NOTE | 2020-07-02 07:19 | P.CNPUL ---
History of Present Illness Consult date: 07/02/20 Chief complaint: Upper GI bleed History of present illness: Is a 49-year-old here patient with known history of alcoholic liver cirrhosis, esophageal varices and portal hypertension. The patient came into the emergency with about of hematemesis yesterday. Apparently, she had a gag and subsequently she had a emesis where she follow-up some blood which was bright red and was minimal amount. This was a concern of for that reason she came into the emergency and ultimately she was hospitalized. Her abdomen was soft. No abdominal pain. No bright red blood per rectum. No melena. This morning, she had a melanotic stool and this is the first bout of a bleeding occurring rectally since yesterday. No further bouts of hematemesis. No altered mentation. No encephalopathy. The patient was started on IV hydration. The patient was also started on IV Protonix and octreotide and GI consultation was requested. Meanwhile, platelet counts are 246 at time of admission. INR is at 1.6 with a PT of 16.3 and a PTT of 25.7. The rest of the blood work shows a sodium level of 131, potassium was 3.4 replaced, serum bicarb was 22, LFTs are w ithin normal limits and total protein was 7.2 with an albumin of 2.9. He has been ordered. Total of 1 unit of packed RBC. I will suggest giving another one making a total of 2 units. Her last alcohol drink was around 2 weeks ago and she hasn't drank since. Review of Systems Constitutional: Reports weakness, Reports weight loss, Denies chills, Denies f ever Eyes: denies as per HPI, denies blurred vision, denies bulging eye, denies decreased vision, denies diplopia, denies discharge, denies dry eye, denies irritation, denies itching, denies pain, denies photophobia, denies loss of peripheral vision, denies loss of vision, denies tunnel vision/blind spots Ears: deny: decreased hearing, ear discharge, earache, tinnitus Ears, nose, mouth and throat: Denies headache, Denies sore throat Breasts: absent: as per HPI, change in shape, gynecomastia, masses, nipple discharge, pain, skin changes, swelling Cardiovascular: Reports as per HPI Respiratory: Reports as per HPI Gastrointestinal: Reports BRBPR, Reports hematemesis, Reports loss of appetite, Reports nausea, Reports vomiting Genitourinary: Reports as per HPI Menstruation: Reports as per HPI Musculoskeletal: Reports as per HPI Musculoskeletal: absent: ankle pain, ankle stiffness, ankle swelling, as per HPI, elbow pain, elbow stiffness, elbow swelling, foot pain, foot stiffness, foot swelling, hand pain, hand stiffness, hand swelling, hip pain, hip stiffness, hip swelling, knee pain, knee stiffness, knee swelling, shoulder pain, shoulder stiffness, shoulder swelling, wrist pain, wrist stiffness, wrist swelling Integumentary: Reports as per HPI Neurological: Reports as per HPI Psychiatric: Reports as per HPI Endocrine: Reports as per HPI Hematologic/Lymphatic: Reports as per HPI Allergic/Immunologic: Reports as per HPI Past Medical History Additional Past Medical History / Comment(s): liver disease-patient used to get paracentesis every two weeks, patient states that she has not recieved one since dec 15, 2019, has had previous bouts of GI bleed and her last scope was in May 2020 and this was done at [facility]. She is known to have portal hypertension and esophageal bases. History of Any Multi-Drug Resistant Organisms: None Reported Past Surgical History: No Surgical Hx Reported Past Anesthesia/Blood Transfusion Reactions: No Reported Reaction Past Psychological History: No Psychological Hx Reported Smoking Status: Current every day smoker Past Alcohol Use History: Occasional, Rare Past Drug Use History: None Reported - Past Family History Father Family Medical History: No Reported History Mother Family Medical History: No Reported History Medications and Allergies Home Medications Medication Instructions Recorded Confirmed Type Folic Acid 1 mg PO DAILY #30 tablet 05/14/20 07/01/20 Rx Multivitamins, Thera [Multivitamin] 1 tab PO DAILY #30 tablet 05/14/20 07/01/20 Rx Spironolactone [Aldactone] 50 mg PO BID #60 tab 05/14/20 07/01/20 Rx Thiamine [Vitamin B-1] 100 mg PO DAILY #30 tablet 05/14/20 07/01/20 Rx Calcium Carbonate [Tums] 500 mg PO QID PRN 07/01/20 07/01/20 History Nicotine 14Mg/24Hr Patch [Habitrol] 1 patch TRANSDERM DAILY PRN 07/01/20 07/01/20 History Pantoprazole Sodium [Protonix] 20 mg PO DAILY PRN 07/01/20 07/01/20 History Simethicone [Gas-X] 125 mg PO ACHS PRN 07/01/20 07/01/20 History Allergies Allergy/AdvReac Type Severity Reaction Status Date / Time No Known Allergies Allergy Verified 07/01/20 20:23 Physical Exam Vitals: Vital Signs Temp Pulse Resp BP BP Pulse Ox 07/02/20 06:00 90 18 89/47 94 L 07/02/20 05:00 99.4 F 89 17 90/52 95 07/02/20 04:00 88 17 93/57 95 07/02/20 03:00 93 17 96/59 95 07/02/20 02:00 96 17 88/54 95 07/02/20 01:00 94 15 90/51 93 L 07/02/20 00:00 98 15 90/52 95 07/01/20 23:19 99.3 F 16 90/54 96 07/01/20 23:18 98.5 F 110 H 20 97/58 99 07/01/20 23:05 104 H 18 96/56 97 07/01/20 21:56 104 H 20 104/55 98 07/01/20 21:00 112 H 20 94/60 96 07/01/20 20:00 118 H 20 101/62 96 07/01/20 19:15 98.5 F 126 H 20 114/65 99 Intake and Output 07/01/20 07/02/20 07/02/20 22:59 06:59 14:59 Intake Total 990 Output Total 0 Balance 990 Intake: IV 990 Magnesium Sulfate-D5w Pmx 300 1 gm In Dextrose/Water 1 100ml.bag @ 100 mls/hr IVPB Q1H [facility] Rx#: [id number] Potassium Chloride 10 meq 200 In Water For Injection 1 100ml.bag @ 100 mls/hr IVPB ONCE [facility] Rx#: [id number] Sodium Chloride 0.9% 1, 490 000 ml @ 70 mls/hr IV . [id number] [facility] Rx#:[id number] Output: Urine 0 Other: Weight 54.885 kg 59.2 kg Gen. appearance the patient is awake and alert, she is chronically cachectic and sick looking. She has a BMI of 21.1. No agitation. No tremors. Head exam was generally normal. There was no scleral icterus or corneal arcus. Mucous membranes were moist. Neck was supple and without jugular venous distension, thyromegaly, or carotid bruits. Carotids were easily palpable bilaterally. There was no adenopathy. Lungs were clear to auscultation and percussion, and with normal diaphragmatic excursion. No wheezes or rales were noted. Cardiac exam revealed the PMI to be normally situated and sized. The rhythm was regular and no extrasystoles were noted during several minutes of auscultation. The first and second heart sounds were normal and physiologic splitting of the second heart sound was noted. There were no murmurs, rubs, clicks, or gallops. Abdominal exam revealed normal bowel sounds. The abdomen was soft, non-tender, and without masses, organomegaly, or appreciable enlargement of the abdominal aorta. Examination of the extremities revealed easily palpable radial, femoral and pedal pulses. There was no cyanosis, clubbing or edema. Examination of the skin revealed no evidence of significant rashes, suspicious appearing nevi or other concerning lesions. The patient has telangiectasias in her upper chest area related to liver cirrhosis Neurologically the patient is awake alert and she is following commands and answering questions. Results - Laboratory Findings CBC and BMP: 07/02/20 04:24 07/02/20 04:24 PT/INR, D-dimer PT 16.3 sec (9.0-12.0) H 07/01/20 19:45 INR 1.6 (<1.2) H 07/01/20 19:45 Abnormal lab findings: Abnormal Labs 07/01/20 07/01/20 07/01/20 19:45 19:45 19:45 WBC 12.6 H RBC 2.70 L Hgb 8.4 L Hct 25.9 L RDW 17.3 H Neutrophils # 9.8 H PT 16.3 H INR 1.6 H Sodium 131 L Potassium 3.4 L Chloride 97 L BUN 19 H Glucose POC Glucose (mg/dL) Plasma Lactic Acid Raza Calcium Magnesium 1.1 L Total Bilirubin 2.0 H AST 61 H Total Protein Albumin 2.9 L Crossmatch 07/01/20 07/01/20 07/01/20 19:45 19:45 23:34 WBC RBC Hgb Hct RDW Neutrophils # PT INR Sodium Potassium Chloride BUN Glucose POC Glucose (mg/dL) 101 H Plasma Lactic Acid Raza 2.4 H* Calcium Magnesium Total Bilirubin AST Total Protein Albumin Crossmatch See Detail 07/02/20 07/02/20 04:24 04:24 WBC 10.7 H RBC 2.07 L Hgb 6.4 L* D Hct 20.0 L RDW 17.8 H Neutrophils # PT INR Sodium 130 L Potassium Chloride BUN 23 H Glucose 122 H POC Glucose (mg/dL) Plasma Lactic Acid Raza Calcium 7.7 L Magnesium Total Bilirubin 1.8 H AST 58 H Total Protein 5.8 L Albumin 2.3 L Crossmatch Assessment and Plan Plan: 1 acute upper GI bleeding most likely due to complications of liver cirrhosis, portal hypertension and esophageal varices. The patient came in with hematemesis one bout and this morning she had some bright red blood per rectum. Hemoglobin is up To 6.8. She Is Also Having Some Sinus Tachycardia. Blood Pressure Is Well Maintained and She Is Not Requiring Any Pressors for Now. 2 acute blood loss anemia and her hemoglobin dropped down to 6.8, secondary to above 3 alcoholic liver cirrhosis with signs of portal hypertension. The patient has had previous EGD at [facility] and she was found to have esophageal varices, no banding was done according to her. For now, she has no signs of hepatic encephalopathy. No significant ascites. She has had previous complications of ascites requiring paracentesis none for this current year. Her last alcoholic drink/beverage was approximately 2 weeks ago. No signs of any delirium tremens, she had some electrolyte disturbance which was replaced during this current admission. 4 sinus tachycardia, secondary to above 5 alcoholism 6 smoking Plan At the time of my evaluation, I witnessed another bout of hematemesis with the patient was throwing up large clots of dark blood. I think her disease is active for now. I would suggest giving the patient a total of 2 L of IV fluid bolus for now Ordered 2 units of packed RBC stat, in addition to 2 units of fresh frozen plasma and 10 mg of vitamin K Proceed with octreotide treatment No need for NG tube insertion as the patient is able to throw up unless her hematemesis becomes more active Stat GI consultation for EGD Keep nothing by mouth for now No signs of any delirium tremens Electrodes are placed Monitored hemodynamics IV Rocephin as an empiric antibiotic coverage in the setting of an upper GI b leed Ration is critical and will continue to follow.
[2020-07-02] MEDS: PANTOPRAZOLE 40 MG/10 ML VIAL IV SCH ×2 (08:20→20:13)
[2020-07-02] MEDS: SODIUM CHLORIDE 0.9% 1,000 ML IV SCH ×3 (08:56→12:40)
[2020-07-02 11:44] LABS: Glucose,Whole Blood 110 mg/dL (75-99)
--- NOTE | 2020-07-02 11:54 | P.CONS ---
History of Present Illness - Reason for Consult Consult date: 07/02/20 Hematemesis, cirrhosis Requesting physician: Brendon Willingham - Chief Complaint Hematemesis - History of Present Illness 49-year-old female with a medical history significant for heavy alcohol abuse, alcoholic cirrhosis of liver diagnosed 2 years ago with small varices and asci hussain who presented to the hospital due to concerns over hematemesis. The patient was recently hospitalized with similar complaints approximately 6 weeks ago in 05/2020 when she presented with hematemesis as a transfer from outside hospital. At that time the patient had reported intermittently drinking. She was taken for EGD due to the concerns over hematemesis with findings of small nonbleeding esophageal varices with LA grade D reflux esophagitis, a small hiatal hernia and mild antral gastritis. Currently the patient is taking diuretic therapy and outpatient setting. She did have computed tomography scan findings and after the prior to her last admission which were suggestive of cirrhosis and a 1 cm lesion of the right lobe of the liver as well as evidence of varices. She had an MRI of the liver performed on her last hospitalization which showed cholelithiasis, ascites,, bilateral pleural effusions and some small bowel wall thickening with no focal liver defect or discrete mass visualized. She presented to the hospital after an episode of bringing up some bright red blood. After coming to the hospital she had an additional episode of vomiting of blood. No further episodes of hematemesis since that time. Hemoglobin was found to be depressed at 6.8 in the patient is scheduled for transfusion of 2 units packed red blood cells and FFP. She did have 1 dark colored bowel m ovement this morning and nothing since that time. Currently she is receiving care in the intensive care unit. Review of Systems REVIEW OF SYSTEMS: CONSTITUTIONAL: Denies any fevers, chills, weight change or fatigue. CARDIOVASCULAR: Denies any chest pain, palpitations high or low blood pressures RESPIRATORY: Denies any shortness of breath, hemoptysis or cough. GENITOURINARY: No dysuria or hematuria. MUSCULOSKELETAL: No weakness reported. SKIN: Denies any new rashes or lesions, jaundice or pallor. PSYCHIATRIC: Denies any depression or anxiety. NEUROLOGY: Denies headache, denies any new focal deficits. EARS/NOSE/THROAT: No recent hearing change, congestion, nasal discharge or sore throat. EYES: No pain in eyes, discharge or change in vision. GASTROINTESTINAL: As per HPI. Past Medical History Additional Past Medical History / Comment(s): liver disease-patient used to get paracentesis every two weeks, patient states that she has not recieved one since dec 15, 2019, has had previous bouts of GI bleed and her last scope was in May 2020 and this was done at [facility]. She is known to have portal hypertension and esophageal bases. History of Any Multi-Drug Resistant Organisms: None Reported Past Surgical History: No Surgical Hx Reported Past Anesthesia/Blood Transfusion Reactions: No Reported Reaction Past Psychological History: No Psychological Hx Reported Smoking Status: Current every day smoker Past Alcohol Use History: Occasional, Rare Past Drug Use History: None Reported - Past Family History Father Family Medical History: No Reported History Mother Family Medical History: No Reported History Medications and Allergies Home Medications Medication Instructions Recorded Confirmed Type Folic Acid 1 mg PO DAILY #30 tablet 05/14/20 07/01/20 Rx Multivitamins, Thera [Multivitamin] 1 tab PO DAILY #30 tablet 05/14/20 07/01/20 Rx Spironolactone [Aldactone] 50 mg PO BID #60 tab 05/14/20 07/01/20 Rx Thiamine [Vitamin B-1] 100 mg PO DAILY #30 tablet 05/14/20 07/01/20 Rx Calcium Carbonate [Tums] 500 mg PO QID PRN 07/01/20 07/01/20 History Nicotine 14Mg/24Hr Patch [Habitrol] 1 patch TRANSDERM DAILY PRN 07/01/20 07/01/20 History Pantoprazole Sodium [Protonix] 20 mg PO DAILY PRN 07/01/20 07/01/20 History Simethicone [Gas-X] 125 mg PO ACHS PRN 07/01/20 07/01/20 History Allergies Allergy/AdvReac Type Severity Reaction Status Date / Time No Known Allergies Allergy Verified 07/01/20 20:23 Physical Exam Vitals: Vital Signs Temp Pulse Resp BP BP Pulse Ox 07/02/20 11:13 98.1 F 94 14 79/43 98 07/02/20 11:00 92 15 81/43 95 07/02/20 10:43 98.0 F 93 16 81/43 96 07/02/20 10:33 98.2 F 98 22 97/57 99 07/02/20 10:00 98 16 87/52 98 07/02/20 09:00 90 16 92/61 97 07/02/20 08:00 98.3 F 95 18 115/70 94 L 07/02/20 06:00 90 18 89/47 94 L 07/02/20 05:00 99.4 F 89 17 90/52 95 07/02/20 04:00 88 17 93/57 95 07/02/20 03:00 93 17 96/59 95 07/02/20 02:00 96 17 88/54 95 07/02/20 01:00 94 15 90/51 93 L 07/02/20 00:00 98 15 90/52 95 07/01/20 23:19 99.3 F 16 90/54 96 07/01/20 23:18 98.5 F 110 H 20 97/58 99 07/01/20 23:05 104 H 18 96/56 97 07/01/20 21:56 104 H 20 104/55 98 07/01/20 21:00 112 H 20 94/60 96 07/01/20 20:00 118 H 20 101/62 96 07/01/20 19:15 98.5 F 126 H 20 114/65 99 Intake and Output 07/01/20 07/02/20 07/02/20 22:59 06:59 14:59 Intake Total 990 2410 Output Total 0 600 Balance 990 1810 Intake: IV 990 2410 Magnesium Sulfate-D5w Pmx 300 1 gm In Dextrose/Water 1 100ml.bag @ 100 mls/hr IVPB Q1H [facility] Rx#: [id number] Phytonadione 10 mg In 100 Sodium Chloride 0.9% 50 ml @ 100 mls/hr IVPB ONCE [facility] Rx#:[id number] Potassium Chloride 10 meq 200 In Water For Injection 1 100ml.bag @ 100 mls/hr IVPB ONCE [facility] Rx#: [id number] Sodium Chloride 0.9% 1, 490 210 000 ml @ 70 mls/hr IV . [id number] [facility] Rx#:[id number] Sodium Chloride 0.9% 1, 2000 000 ml @ 999 mls/hr IV . Q1H1M [facility] Rx#:[id number] cefTRIAXone 1 gm In 100 Sodium Chloride 0.9% 50 ml @ 100 mls/hr IVPB Q24HR [facility] Rx#:[id number] Blood Product 0 Rc Pheresis 2 As3 Unit 0 [id number] Output: Urine 0 600 Other: Voiding Method Bedpan # Voids 0 # Bowel Movements 600 Weight 54.885 kg 59.2 kg On physical examination, patient appears comfortable in no apparent distress. HEAD: Normocephalic, atraumatic. EYES: No scleral icterus. No conjunctival injection. MOUTH: No lesions, tongue midline. NECK: Trachea midline, no gross abnormalities. CHEST: Clear to auscultation with no wheezing or rhonchi appreciated. HEART: Regular rate and rhythm. ABDOMEN: Soft, thin and nontender. Bowel sounds are positive. No organomegaly. No guarding or rigidity. EXTREMITIES: No pedal edema. SKIN: No rashes, no jaundice. NEUROLOGIC: Alert and oriented x3. No focal deficits. Results CBC & Chem 7: 07/02/20 04:24 07/02/20 04:24 Labs: Abnormal Lab Results - Last 24 Hours (Table) 07/01/20 07/01/20 07/01/20 Range/Units 19:45 19:45 19:45 WBC 12.6 H (3.8-10.6) k/uL RBC 2.70 L (3.80-5.40) m/uL Hgb 8.4 L (11.4-16.0) gm/dL Hct 25.9 L (34.0-46.0) % RDW 17.3 H (11.5-15.5) % Neutrophils # 9.8 H (1.3-7.7) k/uL PT 16.3 H (9.0-12.0) sec INR 1.6 H (<1.2) Sodium 131 L (137-145) mmol/L Potassium 3.4 L (3.5-5.1) mmol/L Chloride 97 L (98-107) mmol/L BUN 19 H (7-17) mg/dL Glucose (74-99) mg/dL POC Glucose (mg/dL) (75-99) mg/dL Plasma Lactic Acid Raza (0.7-2.0) mmol/L Calcium (8.4-10.2) mg/dL Magnesium 1.1 L (1.6-2.3) mg/dL Total Bilirubin 2.0 H (0.2-1.3) mg/dL AST 61 H (14-36) U/L Total Protein (6.3-8.2) g/dL Albumin 2.9 L (3.5-5.0) g/dL Crossmatch 07/01/20 07/01/20 07/01/20 Range/Units 19:45 19:45 23:34 WBC (3.8-10.6) k/uL RBC (3.80-5.40) m/uL Hgb (11.4-16.0) gm/dL Hct (34.0-46.0) % RDW (11.5-15.5) % Neutrophils # (1.3-7.7) k/uL PT (9.0-12.0) sec INR (<1.2) Sodium (137-145) mmol/L Potassium (3.5-5.1) mmol/L Chloride (98-107) mmol/L BUN (7-17) mg/dL Glucose (74-99) mg/dL POC Glucose (mg/dL) 101 H (75-99) mg/dL Plasma Lactic Acid Raza 2.4 H* (0.7-2.0) mmol/L Calcium (8.4-10.2) mg/dL Magnesium (1.6-2.3) mg/dL Total Bilirubin (0.2-1.3) mg/dL AST (14-36) U/L Total Protein (6.3-8.2) g/dL Albumin (3.5-5.0) g/dL Crossmatch See Detail 07/02/20 07/02/20 Range/Units 04:24 04:24 WBC 10.7 H (3.8-10.6) k/uL RBC 2.07 L (3.80-5.40) m/uL Hgb 6.4 L* D (11.4-16.0) gm/dL Hct 20.0 L (34.0-46.0) % RDW 17.8 H (11.5-15.5) % Neutrophils # (1.3-7.7) k/uL PT (9.0-12.0) sec INR (<1.2) Sodium 130 L (137-145) mmol/L Potassium (3.5-5.1) mmol/L Chloride (98-107) mmol/L BUN 23 H (7-17) mg/dL Glucose 122 H (74-99) mg/dL POC Glucose (mg/dL) (75-99) mg/dL Plasma Lactic Acid Raza (0.7-2.0) mmol/L Calcium 7.7 L (8.4-10.2) mg/dL Magnesium (1.6-2.3) mg/dL Total Bilirubin 1.8 H (0.2-1.3) mg/dL AST 58 H (14-36) U/L Total Protein 5.8 L (6.3-8.2) g/dL Albumin 2.3 L (3.5-5.0) g/dL Crossmatch MRI - abdomen: report reviewed (MRI of the abdomen performed on 05/13/2020 negative for any focal liver defects or discrete liver mass with abdominal ascites and bilateral pleural effusions, cholelithiasis and small bowel mild wall thickening.) Assessment and Plan (1) Hematemesis Narrative/Plan: 49-year-old female with decompensated alcoholic cirrhosis of the liver with ascites and varices presenting for hematemesis. In total patient reports 2 episodes of hematemesis and one dark colored bowel movement. Hemoglobin depressed at 6.8 on presentation with mildly elevated BUN of 23. Similar episode in 05/2020 at which time the patient was transferred from an outside hospital to [facility] she did have an EGD with the gastroenterology service which was significant for LA grade B distal esophagitis, small nonbleeding esophageal varices, mild gastritis and a small hiatal hernia with no evidence of bleeding at that time. Unclear etiology, may be related to persistent esophagitis, peptic ulcer disease, variceal bleeding although less likely given findings of recent EGD or other etiology. Current Visit: Yes Status: Acute Code(s): K92.0 - HEMATEMESIS SNOMED Code(s): 5793143 (2) Esophageal varices Current Visit: Yes Status: Acute Code(s): I85.00 - ESOPHAGEAL VARICES WITHOUT BLEEDING SNOMED Code(s): 24223823 (3) Ascites Current Visit: No Status: Acute Code(s): R18.8 - OTHER ASCITES SNOMED Code(s): 682560047 (4) Cirrhosis Current Visit: No Status: Acute Code(s): K74.60 - UNSPECIFIED CIRRHOSIS OF LIVER SNOMED Code(s): 18825169 Plan: Supportive care Nothing by mouth Continue to monitor CBC and transfuse as needed, 2 units of packed red blood cells and FFP are ordered Agree with IV vitamin K Continue IV Protonix therapy Continue Sandostatin Ceftriaxone order for SBP prophylaxis Plan for EGD tomorrow for further evaluation, with the endoscopy report from EGD on 05/13/2020 reviewed, if patient has further bleeding or precipitous fall in hemoglobin procedure will be done emergently Continue ICU care Thank you for allowing us to participate in the care of the patient
--- NOTE | 2020-07-02 15:40 | P.PN ---
Subjective Progress Note Date: 07/02/20 Principal diagnosis: Hematemsis Patient had an episode of throwing up some blood clots this morning. She had a similar episode prior to that at home. Denied any chest pain, shortness of breath or abdominal pain. No fevers or chills. Objective - Vital Signs Vital signs: Vital Signs Temp 98.5 F 07/02/20 14:53 Pulse 96 07/02/20 15:00 Resp 14 07/02/20 15:00 BP 98/69 07/02/20 15:00 Pulse Ox 91 L 07/02/20 15:00 Intake & Output 07/01/20 07/02/20 07/02/20 18:59 06:59 18:59 Intake Total 990 3294 Output Total 0 1200 Balance 990 2094 Weight 59.2 kg Intake: IV 990 2690 Magnesium Sulfate-D5w Pmx 300 1 gm In Dextrose/Water 1 100ml.bag @ 100 mls/hr IVPB Q1H [facility] Rx#: [id number] Phytonadione 10 mg In 100 Sodium Chloride 0.9% 50 ml @ 100 mls/hr IVPB ONCE [facility] Rx#:[id number] Potassium Chloride 10 meq 200 In Water For Injection 1 100ml.bag @ 100 mls/hr IVPB ONCE [facility] Rx#: [id number] Sodium Chloride 0.9% 1, 490 490 000 ml @ 70 mls/hr IV . [id number] [facility] Rx#:[id number] Sodium Chloride 0.9% 1, 2000 000 ml @ 999 mls/hr IV . Q1H1M [facility] Rx#:[id number] cefTRIAXone 1 gm In 100 Sodium Chloride 0.9% 50 ml @ 100 mls/hr IVPB Q24HR [facility] Rx#:[id number] Blood Product 604 Ffp 24 Cpd Unit 0 [id number] Rc As-1 Unit 310 [id number] Rc Pheresis 2 As3 Unit 294 [id number] Output: Urine 0 1200 Other: Voiding Method Bedpan # Voids 0 # Bowel Movements 600 - Exam General: non toxic, no distress, appears older than stated age, thin Derm: no unusual rashes/lesions no unusual ecchymoses, warm, dry Head: atraumatic, normocephalic, symmetric Eyes: EOMI, no lid lag, anicteric sclera, pupils equal round reactive to light ENT: Nose and ears atraumatic, no thrush, no pharyngeal erythema Neck: No thyromegaly, no cervical lymphadenopathy, trachea midline, supple Mouth: no lip lesion, mucus membranes moist Cardiovascular: S1S2 reg, no murmur, positive posterior tibial pulse bilateral, no edema, capillary refill less than 2 seconds Lungs: CTA bilateral, no rhonchi, no rales , no accessory muscle use Abdominal: soft, nontender to palpation, no guarding, no appreciable organomegaly, normal bowel sounds Ext: no gross muscle atrophy, muscle strength 5 out of 5 in all 4 extremities grossly, no contractures, Neuro: CN II-XI grossly intact, light touch intact all 4 extremities, finger to nose within normal limits, Psych: Alert, oriented, appropriate affect - Labs CBC & Chem 7: 07/02/20 04:24 07/02/20 04:24 Labs: Abnormal Lab Results - Last 24 Hours (Table) 07/01/20 07/01/20 07/01/20 Range/Units 19:45 19:45 19:45 WBC 12.6 H (3.8-10.6) k/uL RBC 2.70 L (3.80-5.40) m/uL Hgb 8.4 L (11.4-16.0) gm/dL Hct 25.9 L (34.0-46.0) % RDW 17.3 H (11.5-15.5) % Neutrophils # 9.8 H (1.3-7.7) k/uL PT 16.3 H (9.0-12.0) sec INR 1.6 H (<1.2) Sodium 131 L (137-145) mmol/L Potassium 3.4 L (3.5-5.1) mmol/L Chloride 97 L (98-107) mmol/L BUN 19 H (7-17) mg/dL Glucose (74-99) mg/dL POC Glucose (mg/dL) (75-99) mg/dL Plasma Lactic Acid Raza (0.7-2.0) mmol/L Calcium (8.4-10.2) mg/dL Magnesium 1.1 L (1.6-2.3) mg/dL Total Bilirubin 2.0 H (0.2-1.3) mg/dL AST 61 H (14-36) U/L Total Protein (6.3-8.2) g/dL Albumin 2.9 L (3.5-5.0) g/dL Crossmatch 07/01/20 07/01/20 07/01/20 Range/Units 19:45 19:45 23:34 WBC (3.8-10.6) k/uL RBC (3.80-5.40) m/uL Hgb (11.4-16.0) gm/dL Hct (34.0-46.0) % RDW (11.5-15.5) % Neutrophils # (1.3-7.7) k/uL PT (9.0-12.0) sec INR (<1.2) Sodium (137-145) mmol/L Potassium (3.5-5.1) mmol/L Chloride (98-107) mmol/L BUN (7-17) mg/dL Glucose (74-99) mg/dL POC Glucose (mg/dL) 101 H (75-99) mg/dL Plasma Lactic Acid Raza 2.4 H* (0.7-2.0) mmol/L Calcium (8.4-10.2) mg/dL Magnesium (1.6-2.3) mg/dL Total Bilirubin (0.2-1.3) mg/dL AST (14-36) U/L Total Protein (6.3-8.2) g/dL Albumin (3.5-5.0) g/dL Crossmatch See Detail 07/02/20 07/02/20 07/02/20 Range/Units 04:24 04:24 11:43 WBC 10.7 H (3.8-10.6) k/uL RBC 2.07 L (3.80-5.40) m/uL Hgb 6.4 L* D (11.4-16.0) gm/dL Hct 20.0 L (34.0-46.0) % RDW 17.8 H (11.5-15.5) % Neutrophils # (1.3-7.7) k/uL PT (9.0-12.0) sec INR (<1.2) Sodium 130 L (137-145) mmol/L Potassium (3.5-5.1) mmol/L Chloride (98-107) mmol/L BUN 23 H (7-17) mg/dL Glucose 122 H (74-99) mg/dL POC Glucose (mg/dL) 110 H (75-99) mg/dL Plasma Lactic Acid Raza (0.7-2.0) mmol/L Calcium 7.7 L (8.4-10.2) mg/dL Magnesium (1.6-2.3) mg/dL Total Bilirubin 1.8 H (0.2-1.3) mg/dL AST 58 H (14-36) U/L Total Protein 5.8 L (6.3-8.2) g/dL Albumin 2.3 L (3.5-5.0) g/dL Crossmatch Assessment and Plan Plan: Hematemesis, suspected secondary to variceal bleeding -Continue PPI and octreotide gtts. -GI following, planning EGD in am -Continue with gentle IV hydration -Monitor CBC, hemoglobin currently at baseline -Nothing by mouth for now Alcoholic cirrhosis -Patient strongly advised on the importance of cessation from further alcohol use Hypomagnesemia and hypokalemia -Replace and monitor Lactic acidosis, resolved DVT prophylaxis -IPCDs CODE STATUS: Full Code Discussed with: Patient Anticipated discharge date: 2-[address]: home A total of 35 minutes was spent on the care of this complex patient more than 50% of the time was spent in counseling and care coordination.
[2020-07-02 17:12] LABS: Anisocytosis Slight; Basophils # (A) 0.1 k/uL (0-0.2); Basophils % (A) 0 %; Eosinophils # (A) 0.2 k/uL (0-0.7); Eosinophils % (A) 2 %; HCT 25.1 % (34.0-46.0); Lymphocytes % (A) 10 %; MCH 31.7 pg (25.0-35.0); MCHC 34.3 g/dL (31.0-37.0); MCV 92.6 fL (80.0-100.0); Mean Platelet Volume 8.2; Monocytes # (A) 0.5 k/uL (0-1.0); Monocytes % (A) 5 %; Neutrophils # (A) 8.8 k/uL (1.3-7.7); Neutrophils % (A) 82 %; Platelet Count 174 k/uL (150-450); RBC 2.71 m/uL (3.80-5.40); RDW 17.7 % (11.5-15.5); WBC 10.7 k/uL (3.8-10.6)
[2020-07-02 17:18] LABS: HGB 8.6 gm/dL (11.4-16.0)
[2020-07-02 18:12] LABS: Glucose,Whole Blood 97 mg/dL (75-99)
[2020-07-03] MEDS: LORazepam 2 MG/ML INJ IV PRN ×2 (00:51→09:03)
[2020-07-03] MEDS: SODIUM CHLORIDE 0.9% 1,000 ML IV SCH ×3 (00:56→20:26)
[2020-07-03 02:08] LABS: Glucose,Whole Blood 100 mg/dL (75-99)
[2020-07-03] MEDS: OCTREOTIDE 100 MCG/ML INJ IVP SCH ×3 (04:51→20:26)
[2020-07-03 06:14] LABS: African American GFR (CKD) >90 (>60 ml/min/1.73 sqM); Anion Gap 7 mmol/L; Blood Urea Nitrogen 18 mg/dL (7-17); Calcium 7.7 mg/dL (8.4-10.2); Carbon Dioxide 24 mmol/L (22-30); Chloride 109 mmol/L (98-107); Glucose 87 mg/dL (74-99); Non-African American GFR(CKD) >90 (>60 ml/min/1.73 sqM); Potassium 3.5 mmol/L (3.5-5.1); Sodium 140 mmol/L (137-145)
[2020-07-03 06:25] LABS: Anisocytosis Slight; HCT 25.5 % (34.0-46.0); HGB 8.6 gm/dL (11.4-16.0); MCH 31.1 pg (25.0-35.0); MCHC 33.6 g/dL (31.0-37.0); MCV 92.6 fL (80.0-100.0); Mean Platelet Volume 9.4; Platelet Count 212 k/uL (150-450); Poikilocytosis Slight; RBC 2.76 m/uL (3.80-5.40); RDW 18.7 % (11.5-15.5); WBC 9.6 k/uL (3.8-10.6)
[2020-07-03 06:58] LABS: Anisocytosis (M) Present; Eosinophils # (M) 0.19 k/uL (0-0.7); Lymphocytes # (M) 0.77 k/uL (1.0-4.8); Monocytes # (M) 0.77 k/uL (0-1.0); Neutrophils # (M) 7.87 k/uL (1.3-7.7); Neutrophils % (M) 82 %; Nucleated Red Blood Cells 0 /100 WBC (0-0); Polychromasia Present; Target Cells Present; Total Cells Counted 100
[2020-07-03] MEDS: POTASSIUM CHLORIDE 10 MEQ in WATER FOR INJECTION 1 100ML.BAG IVPB SCH ×4 (07:02→11:21)
--- NOTE | 2020-07-03 07:48 | P.PN ---
Subjective Progress Note Date: 07/03/20 Is a 49-year-old here patient with known history of alcoholic liver cirrhosis, esophageal varices and portal hypertension. The patient came into the emergency with about of hematemesis yesterday. Apparently, she had a gag and subsequently she had a emesis where she follow-up some blood which was bright red and was minimal amount. This was a concern of for that reason she came into the emergency and ultimately she was hospitalized. Her abdomen was soft. No abdominal pain. No bright red blood per rectum. No melena. This morning, she had a melanotic stool and this is the first bout of a bleeding occurring rectally since yesterday. No further bouts of hematemesis. No altered mentation. No encephalopathy. The patient was started on IV hydration. The patient was also started on IV Protonix and octreotide and GI consultation was requested. Meanwhile, platelet counts are 246 at time of admission. INR is at 1.6 with a PT of 16.3 and a PTT of 25.7. The rest of the blood work shows a sodium level of 131, potassium was 3.4 replaced, serum bicarb was 22, LFTs are within normal limits and total protein was 7.2 with an albumin of 2.9. He has been ordered. Total of 1 unit of packed RBC. I will suggest giving another one making a total of 2 units. Her last alcohol drink was around 2 weeks ago and she hasn't drank since. On today's evaluation of 07/03/2020, the patient has not bled since yesterday and she is hemodynamically stable with a hemoglobin level of 8.6. She is still nothing by mouth. She is on octreotide drip. She is on IV fluids with 0.9 at the rate of 70 mL an hour. The plan is to have an EGD today by gastroenterology. Meanwhile, overnight, the patient became delirious and she started acting restless and she became confused. She was urinating on herself. She was pulling on the equipment and she received Ativan 1 mg few times in the middle of the night to control her agitation. She may be headed to a component of delirium tremens. I'm going to put her on the CIWA protocol. At the time of my evaluation this morning she was sleepy and she was laying down in bed comfortably. No significant tachycardia. Pulse ox 98% on room air pH is producing adequate amount of urine output. Her hemoglobin today is 8.6. No nausea. No emesis. No abdominal distention. No abdominal pain. No swelling in lower extremities. No other significant events overnight. Objective - Vital Signs Vital signs: Vital Signs Temp 98 F 07/03/20 00:00 Pulse 89 07/03/20 07:00 Resp 21 07/03/20 07:00 BP 92/46 07/03/20 07:00 Pulse Ox 94 L 07/03/20 07:00 Intake & Output 07/02/20 07/03/20 07/03/20 18:59 06:59 18:59 Intake Total 4143 840 70 Output Total 1800 1100 Balance 2343 -260 70 Weight 57.1 kg Intake: IV 2900 840 70 Phytonadione 10 mg In 100 Sodium Chloride 0.9% 50 ml @ 100 mls/hr IVPB ONCE [facility] Rx#:[id number] Sodium Chloride 0.9% 1, 700 840 70 000 ml @ 70 mls/hr IV . [id number] [facility] Rx#:[id number] Sodium Chloride 0.9% 1, 2000 000 ml @ 999 mls/hr IV . Q1H1M [facility] Rx#:[id number] cefTRIAXone 1 gm In 100 Sodium Chloride 0.9% 50 ml @ 100 mls/hr IVPB Q24HR [facility] Rx#:[id number] Blood Product 1243 Ffp 24 Cpd Unit 306 [id number] Ffp 24 Cpd Unit 333 [id number] Rc As-1 Unit 310 [id number] Rc Pheresis 2 As3 Unit 294 [id number] Output: Urine 1800 1100 Other: Voiding Method Bedpan Incontinent # Voids 0 1 1 # Bowel Movements 600 - Exam Gen. appearance the patient is awake and alert, she is chronically cachectic and sick looking. She has a BMI of 21.1. No agitation. No tremors. Head exam was generally normal. There was no scleral icterus or corneal arcus. Mucous membranes were moist. Neck was supple and without jugular venous distension, thyromegaly, or carotid bruits. Carotids were easily palpable bilaterally. There was no adenopathy. Lungs were clear to auscultation and percussion, and with normal diaphragmatic excursion. No wheezes or rales were noted. Cardiac exam revealed the PMI to be normally situated and sized. The rhythm was regular and no extrasystoles were noted during several minutes of auscultation. The first and second heart sounds were normal and physiologic splitting of the second heart sound was noted. There were no murmurs, rubs, clicks, or gallops. Abdominal exam revealed normal bowel sounds. The abdomen was soft, non-tender, and without masses, organomegaly, or appreciable enlargement of the abdominal aorta. Examination of the extremities revealed easily palpable radial, femoral and pedal pulses. There was no cyanosis, clubbing or edema. Examination of the skin revealed no evidence of significant rashes, suspicious appearing nevi or other concerning lesions. The patient has telangiectasias in her upper chest area related to liver cirrhosis Neurologically the patient is awake alert and she is following commands and answering questions. I will say she is a AO2 at this point in time. No agitation - Labs CBC & Chem 7: 07/03/20 05:12 07/03/20 05:12 Labs: Abnormal Lab Results - Last 24 Hours (Table) 07/01/20 07/02/20 07/02/20 Range/Units 19:45 11:43 17:00 WBC 10.7 H (3.8-10.6) k/uL RBC 2.71 L (3.80-5.40) m/uL Hgb 8.6 L D (11.4-16.0) gm/dL Hct 25.1 L (34.0-46.0) % RDW 17.7 H (11.5-15.5) % Neutrophils # 8.8 H (1.3-7.7) k/uL Neutrophils # (Manual) (1.3-7.7) k/uL Lymphocytes # (Manual) (1.0-4.8) k/uL Chloride (98-107) mmol/L BUN (7-17) mg/dL POC Glucose (mg/dL) 110 H (75-99) mg/dL Calcium (8.4-10.2) mg/dL Crossmatch See Detail 07/03/20 07/03/20 07/03/20 Range/Units 02:06 05:12 05:12 WBC (3.8-10.6) k/uL RBC 2.76 L (3.80-5.40) m/uL Hgb 8.6 L (11.4-16.0) gm/dL Hct 25.5 L (34.0-46.0) % RDW 18.7 H (11.5-15.5) % Neutrophils # (1.3-7.7) k/uL Neutrophils # (Manual) 7.87 H (1.3-7.7) k/uL Lymphocytes # (Manual) 0.77 L (1.0-4.8) k/uL Chloride 109 H (98-107) mmol/L BUN 18 H (7-17) mg/dL POC Glucose (mg/dL) 100 H (75-99) mg/dL Calcium 7.7 L (8.4-10.2) mg/dL Crossmatch Assessment and Plan Plan: 1 acute upper GI bleeding most likely due to complications of liver cirrhosis, portal hypertension and esophageal varices. The patient came in with hematemesis one bout and this morning she had some bright red blood per rectum. Bleeding since yesterday. She remains on octreotide IV. Her most recent hemoglobin as 8.6 and overall the patient has been transfused with a total of 2 units of packed RBCs. She was also given 2 units of fresh frozen plasma. Also received vitamin K 2 acute blood loss anemia and her hemoglobin dropped down to 6.8, secondary to above, currently hemoglobin as 8.6 3 alcoholic liver cirrhosis with signs of portal hypertension. The patient has had previous EGD at [facility] and she was found to have esophageal varices, no banding was done according to her. For now, she has no signs of hepatic encephalopathy. No significant ascites. She has had previous complications of ascites requiring paracentesis none for this current year. Her last alcoholic drink/beverage was approximately 2 weeks ago. She had some electrolyte disturbance which was replaced during this current admission. Ov ernight, the patient became delirious and she went into some mild degree of delirium tremens. 4 sinus tachycardia, secondary to above, improved 5 alcoholism 6 smoking Plan Continue 0.9 saline at the rate of 70 mL an hour Proceed with octreotide treatment Put the patient on a CIWA protocol with Ativan regarding delirium tremens GI is on the case and the patient is being considered for EGD today Keep nothing by mouth for now Monitored hemodynamics IV Rocephin as an empiric antibiotic coverage in the setting of an upper GI bleed will continue to follow.
[2020-07-03] MEDS: PANTOPRAZOLE 40 MG/10 ML VIAL IV SCH ×2 (08:30→19:57)
[2020-07-03] MEDS ORDERED: LORazepam 2 MG/ML INJ IV PRN ×3 (08:55)
[2020-07-03] MEDS ORDERED: IV FLUID CONTINUATION 1,000 ML IV ONE (10:11)
[2020-07-03] MEDS ORDERED: PROPOFOL 10 MG/ML 20 ML VIAL IV ONE (10:26)
[2020-07-03] MEDS ORDERED: LIDOCAINE 1% INJ 10MG/ML (20 ML MDV) ONE (10:26)
[2020-07-03] MEDS ORDERED: IV FLUID CONTINUATION 500 ML IV ONE (10:28)
--- NOTE | 2020-07-03 11:02 | P.PCN ---
Date of Procedure: 07/03/20 Description of Procedure: BRIEF HISTORY: 49-year-old female with a medical history significant for heavy alcohol abuse, alcoholic cirrhosis of liver diagnosed 2 years ago with small varices and ascites who presented to the hospital due to concerns over hematemesis. The patient was recently hospitalized with similar complaints approximately 6 weeks ago in 05/2020 when she presented with hematemesis as a transfer from outside hospital. At that time the patient had reported intermittently drinking. She was taken for EGD due to the concerns over hematemesis with findings of small nonbleeding esophageal varices with LA grade B reflux esophagitis, a small hiatal hernia and mild antral gastritis. Currently the patient is taking diuretic therapy and outpatient setting. She did have computed tomography scan findings and after the prior to her last admission which were suggestive of cirrhosis and a 1 cm lesion of the right lobe of the liver as well as evidence of varices. She had an MRI of the liver performed on her last hospitalization which showed cholelithiasis, ascites,, bilateral pleural effusions and some small bowel wall thickening with no focal liver defect or discrete mass visualized. She presented to the hospital after an episode of bringing up some bright red blood. After coming to the hospital she had an additional episode of vomiting of blood. No further episodes of hematemesis since that time. Hemoglobin was found to be depressed at 6.8 in the patient is scheduled for transfusion of 2 units packed red blood cells and FFP. PROCEDURE PERFORMED: Esophagogastroduodenoscopy. PREOPERATIVE DIAGNOSIS: Hematemesis, anemia of acute blood loss. ESTIMATED BLOOD LOSS: Minimal. IV sedation per anesthesia. PROCEDURE: After informed consent was obtained, the patient was brought into the endoscopy unit. IV sedation was administered by Anesthesia under continuous monitoring. Initially the Olympus GIF-190 video endoscope was inserted into the mouth. Esophagus intubated without any difficulty. It was gradually advanced into the stomach and duodenum and carefully examined. The bulb and the second part of the duodenum appeared normal. The scope at this time was withdrawn to the stomach, adequately insufflated with air, and upon careful examination, mucosa of the antrum, body, cardia and the fundus appeared normal, except for diffuse mild punctate erythema suggestive of mild portal hypertensive gastropathy. The scope was then withdrawn into the esophagus. The GE junction was located at 34 cm from the incisors, with a 2 cm hiatal hernia noted. The esophagus was again significant for a few columns of small nonbleeding esophageal varices and LA grade B distal esophagitis. The patient tolerated the procedure well. IMPRESSION: 1. No active bleeding or old blood noted. 2. Small nonbleeding distal esophageal varices without high risk stigmata for bleeding or red ulysses signs. 3. LA grade B reflux esophagitis. 4. Small hiatal hernia. 5. Mild portal hypertensive gastropathy. RECOMMENDATIONS: The findings of this examination were discussed with the patient in the ICU team. Continue Protonix 40 mg twice daily. Continue to monitor hemoglobin and hematocrit and transfuse as needed. Sucralfate before meals and at nighttime ad ded. Alcohol abstinence. Continue to monitor for signs or symptoms of alcohol withdrawal and treat. Patient somewhat lethargic today unclear if this is secondary to benzodiazepine therapy use for alcohol withdrawal or encephalopathy and ammonia level has been ordered.
[2020-07-03] MEDS: SUCRALFATE 1 GM TAB PO SCH ×3 (13:40→19:57)
[2020-07-03] MEDS: LACTULOSE 20 GM/30 ML CUP PO SCH ×2 (13:41→19:57)
--- NOTE | 2020-07-03 13:45 | P.PN ---
Subjective Progress Note Date: 07/03/20 Principal diagnosis: Hematemsis Patient is still scoring high on CIWA scale due to ETOH withdrawal. She is confused this am. EGD done this am. It showed: 1. No active bleeding or old blood noted. 2. Small nonbleeding distal esophageal varices without high risk stigmata for bleeding or red ulysses signs. 3. LA grade B reflux esophagitis. 4. Small hiatal hernia. 5. Mild portal hypertensive gastropathy. Objective - Vital Signs Vital signs: Vital Signs Temp 98.3 F 07/03/20 08:00 Pulse 86 07/03/20 11:00 Resp 14 07/03/20 11:00 BP 107/79 07/03/20 11:00 Pulse Ox 95 07/03/20 11:00 Intake & Output 07/02/20 07/03/20 07/03/20 18:59 06:59 18:59 Intake Total 4143 840 630 Output Total 1800 1100 0 Balance 2343 -260 630 Weight 57.1 kg Intake: IV 2900 840 630 Phytonadione 10 mg In 100 Sodium Chloride 0.9% 50 ml @ 100 mls/hr IVPB ONCE [facility] Rx#:[id number] Potassium Chloride 10 meq 100 In Water For Injection 1 100ml.bag @ 100 mls/hr IVPB Q1H [facility] Rx#: [id number] Sodium Chloride 0.9% 1, 700 840 330 000 ml @ 70 mls/hr IV . [id number] [facility] Rx#:[id number] Sodium Chloride 0.9% 1, 2000 000 ml @ 999 mls/hr IV . Q1H1M [facility] Rx#:[id number] cefTRIAXone 1 gm In 100 100 Sodium Chloride 0.9% 50 ml @ 100 mls/hr IVPB Q24HR [facility] Rx#:[id number] Blood Product 1243 Ffp 24 Cpd Unit 306 [id number] Ffp 24 Cpd Unit 333 [id number] As-1 Unit 310 [id number] Pheresis 2 As3 Unit 294 [id number] Output: Urine 1800 1100 0 Other: Voiding Method Bedpan Incontinent Incontinent # Voids 0 1 0 # Bowel Movements 600 - Exam General: non toxic, no distress, appears older than stated age, thin Derm: no unusual rashes/lesions no unusual ecchymoses, warm, dry Head: atraumatic, normocephalic, symmetric Eyes: EOMI, no lid lag, anicteric sclera, pupils equal round reactive to light ENT: Nose and ears atraumatic, no thrush, no pharyngeal erythema Neck: No thyromegaly, no cervical lymphadenopathy, trachea midline, supple Mouth: no lip lesion, mucus membranes moist Cardiovascular: S1S2 reg, no murmur, positive posterior tibial pulse bilateral, no edema, capillary refill less than 2 seconds Lungs: CTA bilateral, no rhonchi, no rales , no accessory muscle use Abdominal: soft, nontender to palpation, no guarding, no appreciable organomegaly, normal bowel sounds Ext: no gross muscle atrophy, muscle strength 5 out of 5 in all 4 extremities grossly, no contractures, Neuro: CN II-XI grossly intact, light touch intact all 4 extremities, finger to nose within normal limits, Psych: Alert, oriented, appropriate affect - Labs CBC & Chem 7: 07/03/20 05:12 07/03/20 05:12 Labs: Abnormal Lab Results - Last 24 Hours (Table) 07/01/20 07/02/20 07/03/20 Range/Units 19:45 17:00 02:06 WBC 10.7 H (3.8-10.6) k/uL RBC 2.71 L (3.80-5.40) m/uL Hgb 8.6 L D (11.4-16.0) gm/dL Hct 25.1 L (34.0-46.0) % RDW 17.7 H (11.5-15.5) % Neutrophils # 8.8 H (1.3-7.7) k/uL Neutrophils # (Manual) (1.3-7.7) k/uL Lymphocytes # (Manual) (1.0-4.8) k/uL Chloride (98-107) mmol/L BUN (7-17) mg/dL POC Glucose (mg/dL) 100 H (75-99) mg/dL Calcium (8.4-10.2) mg/dL Ammonia (<30) umol/L Crossmatch See Detail 07/03/20 07/03/20 07/03/20 Range/Units 05:12 05:12 11:38 WBC (3.8-10.6) k/uL RBC 2.76 L (3.80-5.40) m/uL Hgb 8.6 L (11.4-16.0) gm/dL Hct 25.5 L (34.0-46.0) % RDW 18.7 H (11.5-15.5) % Neutrophils # (1.3-7.7) k/uL Neutrophils # (Manual) 7.87 H (1.3-7.7) k/uL Lymphocytes # (Manual) 0.77 L (1.0-4.8) k/uL Chloride 109 H (98-107) mmol/L BUN 18 H (7-17) mg/dL POC Glucose (mg/dL) (75-99) mg/dL Calcium 7.7 L (8.4-10.2) mg/dL Ammonia 48 H (<30) umol/L Crossmatch Assessment and Plan Plan: Hematemesis, suspected secondary to variceal bleeding Acute blood loss anemia -Continue PPI, d/c octreotide gtt. Start ceftriaxone for SBP prophylaxis. -GI following, -Continue with gentle IV hydration -Monitor CBC, hemoglobin currently at baseline -Started on clears Delirium tremens Continue CIWA. Alcoholic cirrhosis Patient strongly advised on the importance of cessation from further alcohol use Hypomagnesemia and hypokalemia -Replace and monitor Lactic acidosis, resolved DVT prophylaxis -IPCDs CODE STATUS: Full Code Discussed with: Patient Anticipated discharge date: 2-[address]: home A total of 35 minutes was spent on the care of this complex patient more than 50% of the time was spent in counseling and care coordination.
[2020-07-03 13:55] LABS: Glucose,Whole Blood 89 mg/dL (75-99)
[2020-07-03] MEDS: THIAMINE 100 MG TAB PO SCH (17:18)
[2020-07-03 17:46] LABS: Glucose,Whole Blood 91 mg/dL (75-99)
[2020-07-04 00:40] LABS: Glucose,Whole Blood 86 mg/dL (75-99)
[2020-07-04] MEDS: OCTREOTIDE 100 MCG/ML INJ IVP SCH (04:24)
[2020-07-04 06:02] LABS: Glucose,Whole Blood 119 mg/dL (75-99)
[2020-07-04] MEDS: PANTOPRAZOLE 40 MG/10 ML VIAL IV SCH ×2 (08:04→20:52)
[2020-07-04] MEDS: THIAMINE 100 MG TAB PO SCH ×2 (08:04→16:59)
[2020-07-04] MEDS: LACTULOSE 20 GM/30 ML CUP PO SCH ×3 (08:05→20:52)
[2020-07-04] MEDS: SUCRALFATE 1 GM TAB PO SCH ×4 (08:05→20:52)
[2020-07-04] MEDS: SODIUM CHLORIDE 0.9% 1,000 ML IV SCH (08:06)
[2020-07-04] MEDS: LORazepam 2 MG/ML INJ IV PRN ×2 (08:15→22:43)
[2020-07-04 09:19] LABS: Anisocytosis Slight; HCT 26.2 % (34.0-46.0); HGB 8.7 gm/dL (11.4-16.0); Hypochromasia Slight; MCH 31.8 pg (25.0-35.0); MCHC 33.1 g/dL (31.0-37.0); MCV 95.9 fL (80.0-100.0); Macrocytosis Slight; Mean Platelet Volume 9.7; Platelet Count 189 k/uL (150-450); Poikilocytosis Slight; RBC 2.73 m/uL (3.80-5.40); RDW 18.5 % (11.5-15.5); WBC 8.7 k/uL (3.8-10.6)
[2020-07-04 09:34] LABS: ALT 20 U/L (4-34); AST 64 U/L (14-36); African American GFR (CKD) >90 (>60 ml/min/1.73 sqM); Albumin 2.3 g/dL (3.5-5.0); Albumin/Globulin Ratio 0.6; Alkaline Phosphatase 94 U/L (38-126); Anion Gap 5 mmol/L; Blood Urea Nitrogen 9 mg/dL (7-17); Calcium 7.7 mg/dL (8.4-10.2); Carbon Dioxide 22 mmol/L (22-30); Chloride 108 mmol/L (98-107); Globulin 3.7 g/dL; Glucose 100 mg/dL (74-99); Non-African American GFR(CKD) >90 (>60 ml/min/1.73 sqM); Potassium 3.6 mmol/L (3.5-5.1); Sodium 135 mmol/L (137-145); Total Bilirubin 1.4 mg/dL (0.2-1.3)
[2020-07-04 11:36] LABS: Glucose,Whole Blood 102 mg/dL (75-99)
--- NOTE | 2020-07-04 14:44 | P.PN ---
Subjective Progress Note Date: 07/04/20 Principal diagnosis: Hematemesis, cirrhosis of liver This is a 49-year-old female with a past medical history significant for heavy alcohol abuse, alcoholic cirrhosis of the liver which was diagnosed 2 years ago with history small varices and ascites who presented to the hospital with hematemesis. Patient is seen and examined sitting up in her 50s. She still appears slightly confused. She does state that she Is clearing hospital, but believes the year is 1969. She is status post upper endoscopy yesterday revealing no active bleeding or old blood seen, small nonbleeding distal esophageal varices, LA grade B reflux esophagitis, mild portal hypertensive gastropathy. She is currently on Protonix 40 mg twice a day, Carafate 4 times a day, and lactulose 20 mg twice a day. She states she had 2 bowel movements yesterday. Denying any abdominal pain, nausea, or vomiting. Denies any signs of GI bleed. Today's hemoglobin is 8.7, repeat ammonia is 37 down from 48. Objective - Vital Signs Vital signs: Vital Signs Temp 98.0 F 07/04/20 08:00 Pulse 83 07/04/20 08:00 Resp 16 07/04/20 08:00 BP 108/66 07/04/20 08:00 Pulse Ox 96 07/04/20 08:00 Intake & Output 07/03/20 07/04/20 07/04/20 18:59 06:59 18:59 Intake Total 630 Output Total 0 Balance 630 Weight 60.2 kg Intake: IV 630 Potassium Chloride 10 meq 100 In Water For Injection 1 100ml.bag @ 100 mls/hr IVPB Q1H [facility] Rx#: [id number] Sodium Chloride 0.9% 1, 330 000 ml @ 70 mls/hr IV . [id number] [facility] Rx#:[id number] cefTRIAXone 1 gm In 100 Sodium Chloride 0.9% 50 ml @ 100 mls/hr IVPB Q24HR [facility] Rx#:[id number] Output: Urine 0 Other: Voiding Method Incontinent Incontinent # Voids 0 3 - Exam General appearance: The patient is alert, oriented, appears in no acute distress. HET: Head is normocephalic and atraumatic. Conjunctiva pink. Sclera anicteric. Neck: Supple without lymphadenopathy. Abdomen: Soft, nontender, nondistended with bowel sounds. No guarding or rigidity. Extremities: Normal skin color and turgor. No pedal edema Skin: No rashes, no jaundice Neurological: No focal deficits. Alert and oriented 3. - Labs CBC & Chem 7: 07/04/20 09:00 07/04/20 09:00 Labs: Abnormal Lab Results - Last 24 Hours (Table) 07/03/20 07/04/20 07/04/20 Range/Units 11:38 06:00 09:00 RBC 2.73 L (3.80-5.40) m/uL Hgb 8.7 L (11.4-16.0) gm/dL Hct 26.2 L (34.0-46.0) % RDW 18.5 H (11.5-15.5) % Sodium (137-145) mmol/L Chloride (98-107) mmol/L Glucose (74-99) mg/dL POC Glucose (mg/dL) 119 H (75-99) mg/dL Calcium (8.4-10.2) mg/dL Total Bilirubin (0.2-1.3) mg/dL AST (14-36) U/L Ammonia 48 H (<30) umol/L Total Protein (6.3-8.2) g/dL Albumin (3.5-5.0) g/dL 07/04/20 07/04/20 Range/Units 09:00 09:00 RBC (3.80-5.40) m/uL Hgb (11.4-16.0) gm/dL Hct (34.0-46.0) % RDW (11.5-15.5) % Sodium 135 L (137-145) mmol/L Chloride 108 H (98-107) mmol/L Glucose 100 H (74-99) mg/dL POC Glucose (mg/dL) (75-99) mg/dL Calcium 7.7 L (8.4-10.2) mg/dL Total Bilirubin 1.4 H (0.2-1.3) mg/dL AST 64 H (14-36) U/L Ammonia 37 H (<30) umol/L Total Protein 6.0 L (6.3-8.2) g/dL Albumin 2.3 L (3.5-5.0) g/dL Assessment and Plan (1) Hematemesis Narrative/Plan: 49-year-old female with decompensated alcoholic cirrhosis of the liver with ascites and varices presenting for hematemesis. In total patient reports 2 episodes of hematemesis and one dark colored bowel movement. Hemoglobin depressed at 6.8 on presentation with mildly elevated BUN of 23. Similar episode in 05/2020 at which time the patient was transferred from an outside hospital to [facility] she did have an EGD with the gastroenterology service which was significant for LA grade B distal esophagitis, small nonbleeding esophageal varices, mild gastritis and a small hiatal hernia with no evidence of bleeding at that time. Unclear etiology, may be related to persistent esophagitis, peptic ulcer disease, variceal bleeding although less likely given findings of recent EGD or other etiology. Upper endoscopy performed yesterday showing no active bleeding or old blood noted, small nonbleeding distal esophageal varices without high risk stigmata for bleeding or red wheal sign, LA grade B reflux esophagitis, small hiatal hernia, mild portal hypertensive gastropathy Current Visit: Yes Status: Acute Code(s): K92.0 - HEMATEMESIS SNOMED Code(s): 2379385 (2) Esophageal varices Current Visit: Yes Status: Acute Code(s): I85.00 - ESOPHAGEAL VARICES WITHOUT BLEEDING SNOMED Code(s): 52599445 (3) Cirrhosis Current Visit: No Status: Acute Code(s): K74.60 - UNSPECIFIED CIRRHOSIS OF LIVER SNOMED Code(s): 05239753 Plan: 1. Supportive care 2. Increase lactulose to 20 mg 3 times a day titrate for 3-4 bowel movements daily 3. Continue Protonix 4. Continue sucralfate 5. Patient is status post upper endoscopy 6. Repeat CBC, ammonia in the morning 7. Alcohol abstinence 8. Continue to monitor signs and symptoms of alcohol withdrawal Thank you for this consultation, we will continue to follow Dr. Petr Tucker I agree with the dictator's note, documented as a scribe by Avis Roach.
--- NOTE | 2020-07-04 15:34 | P.PN ---
Subjective Progress Note Date: 07/04/20 Principal diagnosis: Hematemsis Patient is more oriented today compared to yesterday. She is able to answer questions more appropriately this morning. No fevers or chills. No pain. No diarrhea. No hematemesis or hematochezia. Objective - Vital Signs Vital signs: Vital Signs Temp 98.0 F 07/04/20 08:00 Pulse 83 07/04/20 08:00 Resp 16 07/04/20 08:00 BP 108/66 07/04/20 08:00 Pulse Ox 96 07/04/20 08:00 Intake & Output 07/03/20 07/04/20 07/04/20 18:59 06:59 18:59 Intake Total 630 Output Total 0 Balance 630 Weight 60.2 kg Intake: IV 630 Potassium Chloride 10 meq 100 In Water For Injection 1 100ml.bag @ 100 mls/hr IVPB Q1H [facility] Rx#: [id number] Sodium Chloride 0.9% 1, 330 000 ml @ 70 mls/hr IV . [id number] [facility] Rx#:[id number] cefTRIAXone 1 gm In 100 Sodium Chloride 0.9% 50 ml @ 100 mls/hr IVPB Q24HR [facility] Rx#:[id number] Output: Urine 0 Other: Voiding Method Incontinent Incontinent Incontinent # Voids 0 3 - Exam General: non toxic, no distress, appears older than stated age, thin Derm: no unusual rashes/lesions no unusual ecchymoses, warm, dry Head: atraumatic, normocephalic, symmetric Eyes: EOMI, no lid lag, anicteric sclera, pupils equal round reactive to light ENT: Nose and ears atraumatic, no thrush, no pharyngeal erythema Neck: No thyromegaly, no cervical lymphadenopathy, trachea midline, supple Mouth: no lip lesion, mucus membranes moist Cardiovascular: S1S2 reg, no murmur, positive posterior tibial pulse bilateral, no edema, capillary refill less than 2 seconds Lungs: CTA bilateral, no rhonchi, no rales , no accessory muscle use Abdominal: soft, nontender to palpation, no guarding, no appreciable organomegaly, normal bowel sounds Ext: no gross muscle atrophy, muscle strength 5 out of 5 in all 4 extremities grossly, no contractures, Neuro: CN II-XI grossly intact, light touch intact all 4 extremities, finger to nose within normal limits, Psych: Alert, oriented, appropriate affect - Labs CBC & Chem 7: 07/04/20 09:00 07/04/20 09:00 Labs: Abnormal Lab Results - Last 24 Hours (Table) 07/04/20 07/04/20 07/04/20 Range/Units 06:00 09:00 09:00 RBC 2.73 L (3.80-5.40) m/uL Hgb 8.7 L (11.4-16.0) gm/dL Hct 26.2 L (34.0-46.0) % RDW 18.5 H (11.5-15.5) % Sodium 135 L (137-145) mmol/L Chloride 108 H (98-107) mmol/L Glucose 100 H (74-99) mg/dL POC Glucose (mg/dL) 119 H (75-99) mg/dL Calcium 7.7 L (8.4-10.2) mg/dL Total Bilirubin 1.4 H (0.2-1.3) mg/dL AST 64 H (14-36) U/L Ammonia (<30) umol/L Total Protein 6.0 L (6.3-8.2) g/dL Albumin 2.3 L (3.5-5.0) g/dL 07/04/20 07/04/20 Range/Units 09:00 11:22 RBC (3.80-5.40) m/uL Hgb (11.4-16.0) gm/dL Hct (34.0-46.0) % RDW (11.5-15.5) % Sodium (137-145) mmol/L Chloride (98-107) mmol/L Glucose (74-99) mg/dL POC Glucose (mg/dL) 102 H (75-99) mg/dL Calcium (8.4-10.2) mg/dL Total Bilirubin (0.2-1.3) mg/dL AST (14-36) U/L Ammonia 37 H (<30) umol/L Total Protein (6.3-8.2) g/dL Albumin (3.5-5.0) g/dL Assessment and Plan Plan: Hematemesis, suspected secondary to variceal bleeding Acute blood loss anemia -Continue PPI, d/c octreotide gtt. Start ceftriaxone for SBP prophylaxis. -GI following, -Discontinue IV hydration -Monitor CBC, hemoglobin currently at baseline -Advised diet as tolerated Delirium tremens Continue CIWA. Alcoholic cirrhosis Patient strongly advised on the importance of cessation from further alcohol use Lactulose increased by GI Hypomagnesemia and hypokalemia -Replace and monitor Lactic acidosis, resolved DVT prophylaxis -IPCDs CODE STATUS: Full Code Discussed with: Patient Anticipated discharge date: Tomorrow Anticipated discharge place: home
[2020-07-04 17:26] LABS: Glucose,Whole Blood 83 mg/dL (75-99)
--- NOTE | 2020-07-04 18:16 | P.PN ---
Subjective Progress Note Date: 07/04/20 Principal diagnosis: acute upper GI bleeding Is a 49-year-old here patient with known history of alcoholic liver cirrhosis, esophageal varices and portal hypertension. The patient came into the emergency with about of hematemesis yesterday. Apparently, she had a gag and subsequently she had a emesis where she follow-up some blood which was bright red and was minimal amount. This was a concern of for that reason she came into the emergency and ultimately she was hospitalized. Her abdomen was soft. No abdominal pain. No bright red blood per rectum. No melena. This morning, she had a melanotic stool and this is the first bout of a bleeding occurring rectally since yesterday. No further bouts of hematemesis. No altered mentation. No encephalopathy. The patient was started on IV hydration. The patient was also started on IV Protonix and octreotide and GI consultation was requested. Meanwhile, platelet counts are 246 at time of admission. INR is at 1.6 with a PT of 16.3 and a PTT of 25.7. The rest of the blood work shows a sodium level of 131, potassium was 3.4 replaced, serum bicarb was 22, LFTs are within normal limits and total protein was 7.2 with an albumin of 2.9. He has been ordered. Total of 1 unit of packed RBC. I will suggest giving another one making a total of 2 units. Her last alcohol drink was around 2 weeks ago and she hasn't drank since. On today's evaluation of 07/03/2020, the patient has not bled since yesterday and she is hemodynamically stable with a hemoglobin level of 8.6. She is still nothing by mouth. She is on octreotide drip. She is on IV fluids with 0.9 at the rate of 70 mL an hour. The plan is to have an EGD today by gastroenterology. Meanwhile, overnight, the patient became delirious and she started acting restless and she became confused. She was urinating on herself. She was pulling on the equipment and she received Ativan 1 mg few times in the middle of the night to control her agitation. She may be headed to a component of delirium tremens. I'm going to put her on the CIWA protocol. At the time of my evaluation this morning she was sleepy and she was laying down in bed comfortably. No significant tachycardia. Pulse ox 98% on room air pH is producing adequate amount of urine output. Her hemoglobin today is 8.6. No nausea. No emesis. No abdominal distention. No abdominal pain. No swelling in lower extremities. No other significant events overnight. Patient was reevaluated today on 07/04/20, she is sitting in bed, very comfortable, on room air, in no distress.hemoglobin today is 8.7 WBC count is 8.7. Electrolytes are normal renal profile is normal, ammonia level is 37. patient received a total of 2 units of packed RBCs and 2 units of fresh frozen plasma since admission, she is hemodynamically stable, not in any distres. Patient is relatively asymptomatic Objective - Vital Signs Vital signs: Vital Signs Temp 98.0 F 07/04/20 14:00 Pulse 53 L 07/04/20 14:00 Resp 16 07/04/20 14:00 BP 115/74 07/04/20 14:00 Pulse Ox 95 07/04/20 14:00 Intake & Output 07/03/20 07/04/20 07/04/20 18:59 06:59 18:59 Intake Total 630 Output Total 0 Balance 630 Weight 60.2 kg Intake: IV 630 Potassium Chloride 10 meq 100 In Water For Injection 1 100ml.bag @ 100 mls/hr IVPB Q1H [facility] Rx#: [id number] Sodium Chloride 0.9% 1, 330 000 ml @ 70 mls/hr IV . [id number] [facility] Rx#:[id number] cefTRIAXone 1 gm In 100 Sodium Chloride 0.9% 50 ml @ 100 mls/hr IVPB Q24HR [facility] Rx#:[id number] Output: Urine 0 Other: Voiding Method Incontinent Incontinent Incontinent # Voids 0 3 - Exam General: revealed 49-year-old female in no distress, presently on room air, Derm: no rashes. Head: atraumatic, normocephalic, symmetric Eyes: EOMI, no lid lag, anicteric sclera, pupils equal round reactive to light ENT: Nose and ears atraumatic, no thrush, no pharyngeal erythema Neck: No thyromegaly, no cervical lymphadenopathy, trachea midline, supple Mouth: no lip lesion, mucus membranes moist Cardiovascular: S1S2 reg, no murmur, positive posterior tibial pulse bilateral, no edema, capillary refill less than 2 seconds Lungs: symmetrical chest expansion, clear bilaterally no rhonchi and no wheezes. Abdominal: soft, nontender to palpation, no guarding, no appreciable organomegaly, normal bowel sounds Ext: no gross muscle atrophy, muscle strength 5 out of 5 in all 4 extremities grossly, no contractures, Neuro: CN II-XI grossly intact, light touch intact all 4 extremities, finger to nose within normal limits, Psych: Alert, oriented, appropriate affect - Labs CBC & Chem 7: 07/04/20 09:00 07/04/20 09:00 Labs: Abnormal Lab Results - Last 24 Hours (Table) 07/04/20 07/04/20 07/04/20 Range/Units 06:00 09:00 09:00 RBC 2.73 L (3.80-5.40) m/uL Hgb 8.7 L (11.4-16.0) gm/dL Hct 26.2 L (34.0-46.0) % RDW 18.5 H (11.5-15.5) % Sodium 135 L (137-145) mmol/L Chloride 108 H (98-107) mmol/L Glucose 100 H (74-99) mg/dL POC Glucose (mg/dL) 119 H (75-99) mg/dL Calcium 7.7 L (8.4-10.2) mg/dL Total Bilirubin 1.4 H (0.2-1.3) mg/dL AST 64 H (14-36) U/L Ammonia (<30) umol/L Total Protein 6.0 L (6.3-8.2) g/dL Albumin 2.3 L (3.5-5.0) g/dL 07/04/20 07/04/20 Range/Units 09:00 11:22 RBC (3.80-5.40) m/uL Hgb (11.4-16.0) gm/dL Hct (34.0-46.0) % RDW (11.5-15.5) % Sodium (137-145) mmol/L Chloride (98-107) mmol/L Glucose (74-99) mg/dL POC Glucose (mg/dL) 102 H (75-99) mg/dL Calcium (8.4-10.2) mg/dL Total Bilirubin (0.2-1.3) mg/dL AST (14-36) U/L Ammonia 37 H (<30) umol/L Total Protein (6.3-8.2) g/dL Albumin (3.5-5.0) g/dL Assessment and Plan Assessment: 1 acute upper GI bleeding most likely due to complications of liver cirrhosis, portal hypertension and esophageal varices. 2 acute blood loss anemia and her hemoglobin dropped down to 6.8, patient received a total of 2 units of packed RBCs and 2 units of fresh frozen plasma 3 alcoholic liver cirrhosis with signs of portal hypertension. T 4 sinus tachycardia, secondary to above, improved 5 alcoholism 6 tobacco dependence syndrome recommendation: Continue present supportive care measures. Continue to follow recommendations of gastroenterology.regarding her GI blee ding. Continue the CIWA protocol. Continue to monitorI's and O's and hemodynamics. Continue empiric antibiotics. We will sign off and see the patient on when necessary basis. Time with Patient: Less than 30
[2020-07-05 00:58] LABS: Glucose,Whole Blood 100 mg/dL (75-99)
[2020-07-05 06:07] LABS: Glucose,Whole Blood 90 mg/dL (75-99)
[2020-07-05] MEDS: SUCRALFATE 1 GM TAB PO SCH ×4 (07:50→21:12)
[2020-07-05] MEDS: THIAMINE 100 MG TAB PO SCH ×2 (07:50→17:28)
[2020-07-05] MEDS: LACTULOSE 20 GM/30 ML CUP PO SCH ×3 (08:02→21:12)
[2020-07-05] MEDS: PANTOPRAZOLE 40 MG/10 ML VIAL IV SCH ×2 (08:08→21:12)
[2020-07-05 09:38] LABS: Basophils % (A) 0.9 %; Lymphocytes % (A) 14.4 %; MCH 31.1 pg (27.0-32.0); MCV 97.3 fL (80.0-97.0); Mean Platelet Volume 11.9 fL (9.5-12.2); Monocytes % (A) 9.7 %; Neutrophils % (A) 72.5 %; Platelet Count 207 X 10*3/uL (140-440); RBC 2.57 X 10*6/uL (4.10-5.20); RDW 19.6 % (11.5-14.5); WBC 8.83 X 10*3/uL (4.50-10.00)
[2020-07-05 09:39] LABS: Basophils # (A) 0.08 X 10*3/uL (0.00-0.10); Eosinophils # (A) 0.18 X 10*3/uL (0.04-0.35); Lymphocytes # (A) 1.27 X 10*3/uL (0.90-5.00); Monocytes # (A) 0.86 X 10*3/uL (0.20-1.00)
[2020-07-05 10:22] LABS: African American GFR (CKD) 117.9 (60.0-200.0); BUN/Creat Ratio 8.57 Ratio (12.00-20.00); Calcium 7.7 mg/dL (8.7-10.3); Magnesium 1.5 mg/dL (1.5-2.4); Non-African American GFR(CKD) 101.7 (60.0-200.0); Potassium 3.2 mmol/L (3.5-5.5)
[2020-07-05] MEDS: SODIUM CHLORIDE 0.9% 1,000 ML IV SCH (10:58)
[2020-07-05 11:18] LABS: Glucose,Whole Blood 95 mg/dL (75-99)
[2020-07-05] MEDS ORDERED: POTASSIUM CHLORIDE 10 MEQ in WATER FOR INJECTION 1 100ML.BAG IVPB STA (11:18)
[2020-07-05] MEDS ORDERED: POTASSIUM CHLORIDE ER 20 MEQ TAB.ER PO STA (11:18)
[2020-07-05] MEDS: MAGNESIUM SULFATE-D5W PMX 1 GM in DEXTROSE/WATER 1 100ML.BAG IVPB SCH ×2 (12:09→12:51)
--- NOTE | 2020-07-05 12:20 | P.PN ---
Subjective Progress Note Date: 07/05/20 Principal diagnosis: Hematemesis, cirrhosis of liver This is a 49-year-old female with a past medical history significant for heavy alcohol abuse, alcoholic cirrhosis of the liver which was diagnosed 2 years ago with history small varices and ascites who presented to the hospital with hematemesis. Patient is seen and examined sitting up in her 50s. She still appears slightly confused. She does state that she Is clearing hospital, but believes the year is 1969. She is status post upper endoscopy yesterday revealing no active bleeding or old blood seen, small nonbleeding distal esophageal varices, LA grade B reflux esophagitis, mild portal hypertensive gastropathy. She is currently on Protonix 40 mg twice a day, Carafate 4 times a day, and lactulose 20 mg three times a day. She reports having 4-5 bowel movements yesterday, and 1 this morning. She denies any abdominal pain, nausea, or vomiting. Denies any blood in her stool. She is tolerating her diet. She i s more alert today. Objective - Vital Signs Vital signs: Vital Signs Temp 98.4 F 07/05/20 07:46 Pulse 79 07/05/20 07:46 Resp 12 07/05/20 07:46 BP 106/62 07/05/20 07:46 Pulse Ox 95 07/05/20 07:46 Intake & Output 07/04/20 07/05/20 07/05/20 18:59 06:59 18:59 Intake Total 480 Balance 480 Weight 61.5 kg Intake: Oral 480 Other: Voiding Method Incontinent Incontinent # Voids 2 # Bowel Movements 1 - Exam General appearance: The patient is alert, oriented, appears in no acute distress. HET: Head is normocephalic and atraumatic. Conjunctiva pink. Sclera anicteric. Neck: Supple without lymphadenopathy. Abdomen: Soft, nontender, nondistended with bowel sounds. No guarding or rigidity. Extremities: Normal skin color and turgor. No pedal edema Skin: No rashes, no jaundice Neurological: No focal deficits. Alert and oriented 3. - Labs CBC & Chem 7: 07/05/20 06:15 07/05/20 06:15 Labs: Abnormal Lab Results - Last 24 Hours (Table) 07/04/20 07/04/20 07/04/20 Range/Units 09:00 09:00 11:22 Sodium 135 L (137-145) mmol/L Chloride 108 H (98-107) mmol/L Glucose 100 H (74-99) mg/dL POC Glucose (mg/dL) 102 H (75-99) mg/dL Calcium 7.7 L (8.4-10.2) mg/dL Total Bilirubin 1.4 H (0.2-1.3) mg/dL AST 64 H (14-36) U/L Ammonia 37 H (<30) umol/L Total Protein 6.0 L (6.3-8.2) g/dL Albumin 2.3 L (3.5-5.0) g/dL 07/05/20 07/05/20 Range/Units 00:56 06:15 Sodium (137-145) mmol/L Chloride (98-107) mmol/L Glucose (74-99) mg/dL POC Glucose (mg/dL) 100 H (75-99) mg/dL Calcium (8.4-10.2) mg/dL Total Bilirubin (0.2-1.3) mg/dL AST (14-36) U/L Ammonia 30 H (<30) umol/L Total Protein (6.3-8.2) g/dL Albumin (3.5-5.0) g/dL Assessment and Plan (1) Hematemesis Narrative/Plan: 49-year-old female with decompensated alcoholic cirrhosis of the liver with ascites and varices presenting for hematemesis. In total patient reports 2 episodes of hematemesis and one dark colored bowel movement. Hemoglobin depressed at 6.8 on presentation with mildly elevated BUN of 23. Similar episode in 05/2020 at which time the patient was transferred from an outside hospital to [facility] she did have an EGD with the gastroenterology service which was significant for LA grade B distal esophagitis, small nonbleeding esophageal varices, mild gastritis and a small hiatal hernia with no evidence of bleeding at that time. Unclear etiology, may be related to persistent esophagitis, peptic ulcer disease, variceal bleeding although less likely given findings of recent EGD or other etiology. Upper endoscopy performed yesterday showing no active bleeding or old blood noted, small nonbleeding distal esophageal varices without high risk stigmata for bleeding or red wheal sign, LA grade B reflux esophagitis, small hiatal hernia, mild portal hypertensive gastropathy Current Visit: Yes Status: Acute Code(s): K92.0 - HEMATEMESIS SNOMED Code(s): 6764134 (2) Esophageal varices Current Visit: Yes Status: Acute Code(s): I85.00 - ESOPHAGEAL VARICES WITHOUT BLEEDING SNOMED Code(s): 63855604 (3) Cirrhosis Current Visit: No Status: Acute Code(s): K74.60 - UNSPECIFIED CIRRHOSIS OF LIVER SNOMED Code(s): 46244468 Plan: 1. Supportive care 2. Continue lactulose 20 mg 3 times a day titrate for 3-4 bowel movements daily 3. Continue Protonix 4. Continue sucralfate 5. Patient is status post upper endoscopy 6. Repeat CBC, ammonia in the morning 7. Alcohol abstinence 8. Continue to monitor signs and symptoms of alcohol withdrawal 9. Recommend outpatient follow-up Thank you for this consultation, we will continue to follow Dr. Petr Tucker I agree with the dictator's note, documented as a scribe by Avis Roach.
--- NOTE | 2020-07-05 16:32 | P.PN ---
Subjective Progress Note Date: 07/05/20 Principal diagnosis: Hematemsis Patient is doing well overall, still feeling weak. No overnight events. Had about 4 bowel movements yesterday. 1 today. Objective - Vital Signs Vital signs: Vital Signs Temp 98.0 F 07/05/20 14:40 Pulse 99 07/05/20 14:40 Resp 14 07/05/20 14:40 BP 127/75 07/05/20 14:40 Pulse Ox 97 07/05/20 14:40 Intake & Output 07/04/20 07/05/20 07/05/20 18:59 06:59 18:59 Intake Total 480 Balance 480 Weight 61.5 kg Intake: Oral 480 Other: Voiding Method Incontinent Incontinent Incontinent # Voids 2 1 # Bowel Movements 1 - Exam General: non toxic, no distress, appears older than stated age, thin Derm: no unusual rashes/lesions no unusual ecchymoses, warm, dry Head: atraumatic, normocephalic, symmetric Eyes: EOMI, no lid lag, anicteric sclera, pupils equal round reactive to light ENT: Nose and ears atraumatic, no thrush, no pharyngeal erythema Neck: No thyromegaly, no cervical lymphadenopathy, trachea midline, supple Mouth: no lip lesion, mucus membranes moist Cardiovascular: S1S2 reg, no murmur, positive posterior tibial pulse bilateral, no edema, capillary refill less than 2 seconds Lungs: CTA bilateral, no rhonchi, no rales , no accessory muscle use Abdominal: soft, nontender to palpation, no guarding, no appreciable organomegaly, normal bowel sounds Ext: no gross muscle atrophy, muscle strength 5 out of 5 in all 4 extremities grossly, no contractures, Neuro: CN II-XI grossly intact, light touch intact all 4 extremities, finger to nose within normal limits, Psych: Alert, oriented, appropriate affect - Labs CBC & Chem 7: 07/05/20 06:15 07/05/20 06:15 Labs: Abnormal Lab Results - Last 24 Hours (Table) 07/05/20 07/05/20 07/05/20 Range/Units 00:56 06:15 06:15 RBC 2.57 L (4.10-5.20) X 10*6/uL Hgb 8.0 L (12.0-15.0) g/dL Hct 25.0 L (37.2-46.3) % MCV 97.3 H (80.0-97.0) fL RDW 19.6 H (11.5-14.5) % Potassium (3.5-5.5) mmol/L BUN (9.0-27.0) mg/dL BUN/Creatinine Ratio (12.00-20.00) Ratio POC Glucose (mg/dL) 100 H (75-99) mg/dL Calcium (8.7-10.3) mg/dL Ammonia 30 H (<30) umol/L 07/05/20 Range/Units 06:15 RBC (4.10-5.20) X 10*6/uL Hgb (12.0-15.0) g/dL Hct (37.2-46.3) % MCV (80.0-97.0) fL RDW (11.5-14.5) % Potassium 3.2 L (3.5-5.5) mmol/L BUN 6.0 L (9.0-27.0) mg/dL BUN/Creatinine Ratio 8.57 L (12.00-20.00) Ratio POC Glucose (mg/dL) (75-99) mg/dL Calcium 7.7 L (8.7-10.3) mg/dL Ammonia (<30) umol/L Assessment and Plan Plan: Hematemesis, suspected secondary to variceal bleeding Acute blood loss anemia -Continue PPI, -Continue ceftriaxone for SBP prophylaxis. -GI following -Continue to monitor CBC, hemoglobin currently at baseline -Advised diet as tolerated Delirium tremens Continue CIWA. Alcohol abuse Patient is going to try medications to help her quit Start naltrexone 0.1 mg daily Alcoholic cirrhosis with complicated hepatic encephalopathy Patient strongly advised on the importance of cessation from further alcohol use Lactulose held today Hypomagnesemia and hypokalemia -Replace and monitor Lactic acidosis, resolved DVT prophylaxis -IPCDs CODE STATUS: Full Code Discussed with: Patient Anticipated discharge date: Tomorrow Anticipated discharge place: home
[2020-07-05 16:39] VITALS: RESP 16
[2020-07-05 17:30] LABS: Glucose,Whole Blood 93 mg/dL (75-99)
[2020-07-05] MEDS: NALTREXONE HCL 50 MG TAB PO SCH (19:06)
[2020-07-05 19:32] LABS: Anisocytosis Slight; HCT 27.4 % (34.0-46.0); HGB 8.9 gm/dL (11.4-16.0); Hypochromasia Slight; MCH 31.1 pg (25.0-35.0); MCHC 32.5 g/dL (31.0-37.0); MCV 95.7 fL (80.0-100.0); Macrocytosis Slight; Mean Platelet Volume 9.6; Platelet Count 234 k/uL (150-450); RBC 2.86 m/uL (3.80-5.40); RDW 19.2 % (11.5-15.5); WBC 9.6 k/uL (3.8-10.6)
[2020-07-05] MEDS ORDERED: ACETAMINOPHEN TAB 325 MG TAB PO STA (20:38)
[2020-07-06] MEDS: THIAMINE 100 MG TAB PO SCH (07:50)
[2020-07-06] MEDS: SUCRALFATE 1 GM TAB PO SCH ×2 (07:50→12:55)
[2020-07-06] MEDS: LACTULOSE 20 GM/30 ML CUP PO SCH (09:53)
[2020-07-06] MEDS: NALTREXONE HCL 50 MG TAB PO SCH (09:53)
[2020-07-06] MEDS: PANTOPRAZOLE 40 MG/10 ML VIAL IV SCH (09:54)
[2020-07-06 10:00] LABS: African American GFR (CKD) 100.3 (60.0-200.0); Blood Urea Nitrogen <5.0 mg/dL (9.0-27.0); Calcium 8.2 mg/dL (8.7-10.3); Carbon Dioxide 20.2 mmol/L (21.6-31.8); Chloride 111 mmol/L (96-109); Glucose 82 mg/dL (70-110); Magnesium 1.8 mg/dL (1.5-2.4); Non-African American GFR(CKD) 86.6 (60.0-200.0); Phosphorus 2.6 mg/dL (2.4-5.1); Sodium 138 mmol/L (135-145)
[2020-07-06 10:04] LABS: Basophils # (A) 0.07 X 10*3/uL (0.00-0.10); Basophils % (A) 0.8 %; Eosinophils # (A) 0.17 X 10*3/uL (0.04-0.35); Eosinophils % (A) 1.9 %; HCT 26.3 % (37.2-46.3); HGB 8.2 g/dL (12.0-15.0); Lymphocytes # (A) 1.14 X 10*3/uL (0.90-5.00); Lymphocytes % (A) 12.9 %; MCH 30.7 pg (27.0-32.0); MCHC 31.2 g/dL (32.0-37.0); MCV 98.5 fL (80.0-97.0); Monocytes # (A) 1.11 X 10*3/uL (0.20-1.00); Monocytes % (A) 12.6 %; Neutrophils # (A) 6.31 X 10*3/uL (1.80-7.70); Neutrophils % (A) 71.3 %; Platelet Count 217 X 10*3/uL (140-440); RBC 2.67 X 10*6/uL (4.10-5.20); RDW 20.1 % (11.5-14.5); WBC 8.84 X 10*3/uL (4.50-10.00)
[2020-07-06] MEDS: SODIUM CHLORIDE 0.9% 1,000 ML IV SCH (10:40)
--- NOTE | 2020-07-06 11:28 | P.PN ---
Subjective Progress Note Date: 07/06/20 Principal diagnosis: Hematemesis, cirrhosis of liver This is a 49-year-old female with a past medical history significant for heavy alcohol abuse, alcoholic cirrhosis of the liver which was diagnosed 2 years ago with history small varices and ascites who presented to the hospital with hematemesis. She is status post upper endoscopy revealing no active bleeding or old blood seen, small nonbleeding distal esophageal varices, LA grade B reflux esophagitis, mild portal hypertensive gastropathy. She is currently on Protonix 40 mg twice a day, Carafate 4 times a day, and lactulose 20 mg three times a day. Patient had a large dark stool reported yesterday. She states she has had no further dark stools since. She had a repeat hemoglobin yesterday evening that was 8.9. She denies any abdominal pain, nausea, or vomiting. She is more alert and oriented today. Today's repeat hemoglobin is 8.2. Objective - Vital Signs Vital signs: Vital Signs Temp 97.9 F 07/06/20 07:41 Pulse 79 07/06/20 07:41 Resp 16 07/06/20 07:41 BP 100/62 07/06/20 07:41 Pulse Ox 95 07/06/20 07:41 Intake & Output 07/05/20 07/06/20 07/06/20 18:59 06:59 18:59 Weight 61 kg Other: Voiding Method Incontinent Incontinent # Voids 1 1 # Bowel Movements 1 - Exam General appearance: The patient is alert, oriented, appears in no acute distress. HET: Head is normocephalic and atraumatic. Conjunctiva pink. Sclera anicteric. Neck: Supple without lymphadenopathy. Abdomen: Soft, nontender, nondistended with bowel sounds. No guarding or rigidity. Extremities: Normal skin color and turgor. No pedal edema Skin: No rashes, no jaundice Neurological: No focal deficits. Alert and oriented 3. - Labs CBC & Chem 7: 07/06/20 05:15 07/06/20 05:15 Labs: Abnormal Lab Results - Last 24 Hours (Table) 07/05/20 07/05/20 Range/Units 06:15 18:37 RBC 2.86 L (3.80-5.40) m/uL Hgb 8.9 L (11.4-16.0) gm/dL Hct 27.4 L (34.0-46.0) % RDW 19.2 H (11.5-15.5) % Potassium 3.2 L (3.5-5.5) mmol/L BUN 6.0 L (9.0-27.0) mg/dL BUN/Creatinine Ratio 8.57 L (12.00-20.00) Ratio Calcium 7.7 L (8.7-10.3) mg/dL Assessment and Plan (1) Hematemesis Narrative/Plan: 49-year-old female with decompensated alcoholic cirrhosis of the liver with ascites and varices presenting for hematemesis. In total patient reports 2 episodes of hematemesis and one dark colored bowel movement. Hemoglobin depressed at 6.8 on presentation with mildly elevated BUN of 23. Similar episode in 05/2020 at which time the patient was transferred from an outside hospital to [facility] she did have an EGD with the gastroenterology service which was significant for LA grade B distal esophagitis, small nonbleeding esophageal varices, mild gastritis and a small hiatal hernia with no evidence of bleeding at that time. Unclear etiology, may be related to persistent esophagitis, peptic ulcer disease, variceal bleeding although less likely given findings of recent EGD or other etiology. Upper endoscopy performed yesterday showing no active bleeding or old blood note d, small nonbleeding distal esophageal varices without high risk stigmata for bleeding or red wheal sign, LA grade B reflux esophagitis, small hiatal hernia, mild portal hypertensive gastropathy Current Visit: Yes Status: Acute Code(s): K92.0 - HEMATEMESIS SNOMED Code(s): 9547679 (2) Esophageal varices Current Visit: Yes Status: Acute Code(s): I85.00 - ESOPHAGEAL VARICES WITHOUT BLEEDING SNOMED Code(s): 40337806 (3) Cirrhosis Current Visit: No Status: Acute Code(s): K74.60 - UNSPECIFIED CIRRHOSIS OF LIVER SNOMED Code(s): 98573520 Plan: 1. Supportive care 2. Continue lactulose 20 mg 3 times a day titrate for 3-4 bowel movements daily 3. Continue Protonix 4. Continue sucralfate 5. Patient is status post upper endoscopy 6. Repeat CBC 7. Alcohol abstinence 8. Continue to monitor signs and symptoms of alcohol withdrawal 9. Recommend outpatient follow-up, she may be discharged home from a gastroente rology standpoint Thank you for this consultation, we will continue to follow Dr. Petr Tucker I agree with the dictator's note, documented as a scribe by Avis Roach.
--- NOTE | 2020-07-06 14:09 | P.DS ---
Providers Date of admission: 07/01/20 21:04 Expected date of discharge: 07/06/20 Attending physician: Brendon Willingham MD Consults: 07/01/20 19:55 Consult Physician Urgent Consulting Provider: Isidro Salmeron Consult Reason/Comments: hematemasis, hx of varices Do you want consulting provider notified?: Yes 07/01/20 21:15 Consult Physician Routine Consulting Provider: Shannan Robin Consult Reason/Comments: icu patient Do you want consulting provider notified?: Already Contacted Primary care physician: Stated None Hospital Course: 49-year-old female with a medical history significant for heavy alcohol abuse, alcoholic cirrhosis of liver diagnosed 2 years ago with small varices and ascites who presented to the hospital due to concerns over hematemesis. The p tom was recently hospitalized with similar complaints approximately 6 weeks ago in 05/2020 when she presented with hematemesis as a transfer from outside hospital. At that time the patient had reported intermittently drinking. She was taken for EGD due to the concerns over hematemesis with findings of small nonbleeding esophageal varices with LA grade D reflux esophagitis, a small hiatal hernia and mild antral gastritis. Upon presentation this time she did have bandlike upper abdominal discomfort rated as a 3 out of 10. She denied additional complaints. The patient continues to drink alcohol with her last drink one week ago. She denied diarrhea, fever, chills, chest pain, cough, headaches, or dizziness. In the emergency room lactic acid was 2.4, magnesium 1.1, potassium 3.4, AST 61, WBC count 12.6, hemoglobin 8.4, INR 1.6, and sodium 131. Patient was admitted for further medical management. She was initiated on PPI IV as well as octreotide drip. Patient was also given ceftriaxone for SBP prophylaxis. Follow-up hemoglobin check showed a value of 6.8 and due to that she was transfused 2 units packed red blood cells and FFP. She did have few dark colored bowel movements during the admission. Patient underwent an EGD which showed 1. No active bleeding or old blood noted. 2. Small nonbleeding distal esophageal varices without high risk stigmata for bleeding or red ulysses signs. 3. LA grade B reflux esophagitis. 4. Small hiatal hernia. 5. Mild portal hypertensive gastropathy. Due to elevated ammonia level and her showing signs of hepatic encephalopathy she was started on lactulose which produced frequent loose stools after which her mental status improved. She also was treated with CIWA for etoh withdrawal symptoms. Patient is currently alert and oriented 3. She was counseled regarding alcohol quitting. She will be started on naltrexone for alcohol dependence. lot worker also referred patient for helpful programs for alcohol abuse. Patient seems to be motivated to quit. Currently she is stable for discharge, she was cleared by GI. She'll be discharged home in stable condition. Time for discharge 35 minutes. Patient Condition at Discharge: Critical Plan - Discharge Summary Discharge Rx Participant: Yes New Discharge Prescriptions: New Naltrexone HCl [Revia] 50 mg PO DAILY 30 Days #30 tab Lactulose [Cephulac] 20 gm PO TID 30 Days ml Continue Spironolactone [Aldactone] 50 mg PO BID #60 tab Folic Acid 1 mg PO DAILY #30 tablet Multivitamins, Thera [Multivitamin (formulary)] 1 tab PO DAILY #30 tablet Thiamine [Vitamin B-1] 100 mg PO DAILY #30 tablet Simethicone [Gas-X] 125 mg PO ACHS PRN PRN Reason: GAS/BLOATING Calcium Carbonate [Tums] 500 mg PO QID PRN PRN Reason: Gi Upset Nicotine 14Mg/24Hr Patch [Habitrol] 1 patch TRANSDERM DAILY PRN PRN Reason: Nicotine Cravings Changed Pantoprazole Sodium [Protonix] 40 mg PO DAILY PRN 30 Days #30 tab PRN Reason: Gi Upset Discharge Medication List Folic Acid 1 mg PO DAILY #30 tablet 05/14/20 [Rx] Multivitamins, Thera [Multivitamin (formulary)] 1 tab PO DAILY #30 tablet 05/14/20 [Rx] Spironolactone [Aldactone] 50 mg PO BID #60 tab 05/14/20 [Rx] Thiamine [Vitamin B-1] 100 mg PO DAILY #30 tablet 05/14/20 [Rx] Calcium Carbonate [Tums] 500 mg PO QID PRN 07/01/20 [History] Nicotine 14Mg/24Hr Patch [Habitrol] 1 patch TRANSDERM DAILY PRN 07/01/20 [History] Simethicone [Gas-X] 125 mg PO ACHS PRN 07/01/20 [History] Lactulose [Cephulac] 20 gm PO TID 30 Days ml 07/06/20 [Rx] Naltrexone HCl [Revia] 50 mg PO DAILY 30 Days #30 tab 07/06/20 [Rx] Pantoprazole Sodium [Protonix] 40 mg PO DAILY PRN 30 Days #30 tab 07/06/20 [Rx] Follow up Appointment(s)/Referral(s): Marti Tucker MD [STAFF PHYSICIAN] - 2 Weeks (needs appointment at [place] office) None,Stated [Primary Care Provider] - 1-2 days
[2020-07-06 15:01] VITALS: BP 129/79; PULSE 85; TEMP 98.5
[2020-07-06 15:03] VITALS: BMI 21.7
== END 2020-07-06 15:53 | disposition home or self-care (01) | DRG 378 ==
LOC: EC 19:05 → 2SICU 21:04 → 4SSUR 07-03 15:23
PROVIDERS: ADMIT Internal Medicine; ATTEND Internal Medicine
PROC: 30233K1 Transfusion of Nonautologous Frozen Plasma into Peripheral Vein, Percutaneous Approach (ICD-10-PCS; 2020-07-02)
PROC: 30233N1 Transfusion of Nonautologous Red Blood Cells into Peripheral Vein, Percutaneous Approach (ICD-10-PCS; 2020-07-02)
PROC: 0DJ08ZZ Inspection of Upper Intestinal Tract, Via Natural or Artificial Opening Endoscopic (ICD-10-PCS; principal; 2020-07-03 09:00)
DX: K92.0 Hematemesis (principal); E87.2 Acidosis; F10.231 Alcohol dependence with withdrawal delirium; K76.6 Portal hypertension; D62 Acute posthemorrhagic anemia; J90 Pleural effusion, not elsewhere classified; K70.31 Alcoholic cirrhosis of liver with ascites; K72.90 Hepatic failure, unspecified without coma; I85.10 Secondary esophageal varices without bleeding; Z20.822 Contact with and (suspected) exposure to COVID-19; E83.42 Hypomagnesemia; E87.6 Hypokalemia; K21.00 Gastro-esophageal reflux disease with esophagitis, without bleeding; K44.9 Diaphragmatic hernia without obstruction or gangrene; K29.70 Gastritis, unspecified, without bleeding; R32 Unspecified urinary incontinence; K31.89 Other diseases of stomach and duodenum; K80.20 Calculus of gallbladder without cholecystitis without obstruction; D72.829 Elevated white blood cell count, unspecified; R19.5 Other fecal abnormalities; R94.4 Abnormal results of kidney function studies; F17.200 Nicotine dependence, unspecified, uncomplicated; Z79.899 Other long term (current) drug therapy
CPT/HCPCS: 36415; 43235; 80048; 80053; 82140; 83605; 83735; 84100; 84703; 85025; 85027; 85610; 85730; 86850; 86900; 86901; 86920; 87635; 93005; 96374; 96375; 96376; 99285

== ENCOUNTER 2020-12-02 09:21 | Inpatient (IN) | payer MEDICARE, OTHER ==
[2020-12-02] MEDS ORDERED: SODIUM CHLORIDE 0.9% 1,000 ML IV STA ×2 (09:40)
[2020-12-02 10:02] LABS: Anisocytosis Slight; Basophils % (A) 1 %; Eosinophils # (A) 0.1 k/uL (0-0.7); Eosinophils % (A) 1 %; HCT 29.8 % (34.0-46.0); HGB 9.1 gm/dL (11.4-16.0); Hypochromasia Moderate; Lymphocytes # (A) 0.7 k/uL (1.0-4.8); Lymphocytes % (A) 11 %; MCH 28.4 pg (25.0-35.0); MCHC 30.6 g/dL (31.0-37.0); MCV 92.7 fL (80.0-100.0); Mean Platelet Volume 8.5; Monocytes # (A) 0.3 k/uL (0-1.0); Monocytes % (A) 5 %; Neutrophils # (A) 4.9 k/uL (1.3-7.7); Neutrophils % (A) 81 %; Platelet Count 128 k/uL (150-450); RBC 3.21 m/uL (3.80-5.40); RDW 18.6 % (11.5-15.5); WBC 6.1 k/uL (3.8-10.6)
[2020-12-02] MEDS ORDERED: PANTOPRAZOLE 40 MG/10 ML VIAL IVPB ONE (10:30)
--- NOTE | 2020-12-02 10:30 | ED ---
GI Bleed HPI - General Chief complaint: GI Bleed Stated complaint: upper GI bleed Time Seen by Provider: 12/02/20 09:32 Source: patient, EMS Mode of arrival: EMS - History of Present Illness Initial comments: This 49-year-old female presents with a complaint of vomiting blood. She states that this occurred this past evening. She initially was vomiting bright red blood and then states that it was a darker blood. She vomited 5 times total. She was complaining also of some midepigastric abdominal pain. She does have a history of previous upper GI bleeding. She was seen this past spring with similar. She normally follows up with Dr. Adam from gastroenterology. She was previously diagnosed with gastritis as well as esophageal varices. Upon questioning the patient about how much she drinks, she states that she has approximately 2 drinks 2 times a week. Her old records, she has a history of liver cirrhosis with a history of ascites and significant alcohol abuse. She is denying any chest pain, shortness breath, or fevers. She was transferred to our facility from [facility]. They did a CT of her chest abdomen pelvis. This does show fatty infiltration of the liver and possible colitis. Her liver function studies were slightly elevated. Her PT was elevated at 15.1 and INR was elevated at 1.5. Her hemoglobin was 9.0. She apparently initially presented there with a heart rate of 151 which eventually decreased to 110 with fluids. They also gave her Protonix at the other facility. The patient states that she initially presented to their emergency department at 3 AM. She denies any other complaints or modifying factors. She currently is taking a PPI medication and states that she has not stopped this medication. - Related Data Home Medications Medication Instructions Recorded Confirmed Calcium Carbonate [Tums] 500 mg PO QID PRN 07/01/20 07/01/20 Nicotine 14Mg/24Hr Patch [Habitrol] 1 patch TRANSDERM DAILY PRN 07/01/20 07/01/20 Simethicone [Gas-X] 125 mg PO ACHS PRN 07/01/20 07/01/20 Previous Rx's Medication Instructions Recorded Folic Acid 1 mg PO DAILY #30 tablet 05/14/20 Multivitamins, Thera [Multivitamin 1 tab PO DAILY #30 tablet 05/14/20 (formulary)] Spironolactone [Aldactone] 50 mg PO BID #60 tab 05/14/20 Thiamine [Vitamin B-1] 100 mg PO DAILY #30 tablet 05/14/20 Lactulose [Cephulac] 20 gm PO BID 30 Days ml 07/06/20 Lactulose [Cephulac] 20 gm PO TID 30 Days ml 07/06/20 Naltrexone HCl [Revia] 50 mg PO DAILY 30 Days #30 tab 07/06/20 Pantoprazole Sodium [Protonix] 40 mg PO DAILY PRN 30 Days #30 tab 07/06/20 Allergies Allergy/AdvReac Type Severity Reaction Status Date / Time No Known Allergies Allergy Verified 12/02/20 10:14 Review of Systems ROS Statement: Those systems with pertinent positive or pertinent negative responses have been documented in the HPI. ROS Other: All systems not noted in ROS Statement are negative. Past Medical History Additional Past Medical History / Comment(s): liver disease-patient used to get paracentesis every two weeks, patient states that she has not recieved one since dec 15, 2019, has had previous bouts of GI bleed and her last scope was in May 2020 and this was done at [facility]. She is known to have portal hypertension and esophageal bases. History of Any Multi-Drug Resistant Organisms: None Reported Past Surgical History: No Surgical Hx Reported Past Anesthesia/Blood Transfusion Reactions: No Reported Reaction Past Psychological History: No Psychological Hx Reported Smoking Status: Current every day smoker Past Alcohol Use History: Occasional, Rare Past Drug Use History: None Reported - Past Family History Father Family Medical History: No Reported History Mother Family Medical History: No Reported History General Exam - General Exam Comments Initial Comments: GENERAL: The patient is well nourished and well hydrated. VITAL SIGNS: Heart rate, blood pressure, respiratory rate reviewed as recorded in nurse's notes. EYES: Pupils are round and reactive. Extraocular movements are intact. No conjunctival / lid redness or swelling. ENT: No external evidence of injury, swelling, or ecchymosis. Airway is patent. Throat is clear. NECK: Nontender. No swelling or evidence of injury. No subcutaneous emphysema. Trachea is midline. No thyroid mass. HEART: Tachycardic heart rate. Good peripheral pulses. LUNGS/CHEST: Breath sounds clear and equal bilaterally. No rales, rhonchi, or wheezes. No ecchymosis, subcutaneous emphysema, or tenderness. ABDOMEN: Abdomen soft without tenderness. No palpable masses or organomegaly. No peritoneal signs. No abdominal wall swelling or ecchymosis. EXTREMITIES: No extremity tenderness. Normal muscle tone and function. No th oracolumbar tenderness. NEUROLOGIC: Sensation is grossly intact. Cranial nerve exam reveals face is symmetrical, tongue is midline, speech is clear. SKIN: No abrasions or ecchymosis is noted. No induration or masses noted. PSYCHIATRIC: Alert and oriented. Appropriate behavior and judgment. Course Vital Signs 12/02/20 09:23 Temperature 98.4 F Pulse Rate 112 H Respiratory 18 Rate Blood Pressure 135/78 O2 Sat by Pulse 97 Oximetry Medical Decision Making - Medical Decision Making The patient was seen and examined. All diagnostics were reviewed. She was placed on a youth nutritional monitor and this does show evidence of tachycardia. Her EKG shows sinus tachycardia at a rate of 121. There is no acute ST-T wave changes identified. The MN intervals 132, QRS duration is 74, and the QTc interval is 471. The results were reviewed from [facility] which shows a CT of the chest with contrast which does not show any evidence of pulmonary embolism. There is an enlarged lymph node at 1.6 cm. The computed tomography scan of the abdomen and pelvis shows severe hypodensity of the liver which can be seen with fatty infiltration or cirrhosis. Cholelithiasis is evident without evidence of cholecystitis. There is moderate ascites as well. There is mild jejunal wall thickening likely representing enteritis. The laboratory also reviewed and does show a PTT of 30.3, PT of 15.1, INR 1.50, lactic acid of 3.5, CRP of 0.46. The potassium is slightly low at 2.9, CO2 is slightly low at 21, alk phos is elevated at 153, a LT is normal but AST is low at 149. The BUN/creatinine and creatinine are normal. The glucose is 95. The total bilirubin is elevated at 2.5. The hemoglobin is low at 9.0 this is compared to previous and is slightly elevated over her previous spring levels when she is having a GI bleed as well. Her hemoglobin is repeated here and shows a level of 9.1. It is felt as though patient would benefit from admission to the hospital with GI consultation. Dr. Adam has been paged and we are currently awaiting her call back. Case is also discussed with Dr. Nicolas and he is agreeable with admission with GI is available. Office is called and they do relate that Dr. Adam is on-call today and for the weekend coverage. The patient is started on Protonix as well as octreotide. Old records do indicate that she has a history of esophageal varices and previous EGD. The possibility of esophageal variceal bleed versus a peptic ulcer disease is certainly plausible. Patient will be admitted to monitored bed for full admission. - Lab Data Result diagrams: 12/02/20 09:52 Lab Results 12/02/20 Range/Units 09:52 WBC 6.1 (3.8-10.6) k/uL RBC 3.21 L (3.80-5.40) m/uL Hgb 9.1 L (11.4-16.0) gm/dL Hct 29.8 L (34.0-46.0) % MCV 92.7 (80.0-100.0) fL MCH 28.4 (25.0-35.0) pg MCHC 30.6 L (31.0-37.0) g/dL RDW 18.6 H (11.5-15.5) % Plt Count 128 L (150-450) k/uL MPV 8.5 Neutrophils % 81 % Lymphocytes % 11 % Monocytes % 5 % Eosinophils % 1 % Basophils % 1 % Neutrophils # 4.9 (1.3-7.7) k/uL Lymphocytes # 0.7 L (1.0-4.8) k/uL Monocytes # 0.3 (0-1.0) k/uL Eosinophils # 0.1 (0-0.7) k/uL Basophils # 0.0 (0-0.2) k/uL Hypochromasia Moderate Anisocytosis Slight Disposition Clinical Impression: Cirrhosis, Esophageal varices, Hematochezia, Anemia, Sinus tachycardia, Upper gastrointestinal hemorrhage, Acute abdominal pain, History of alcohol abuse Disposition: ADMITTED IP TO THIS HOSP Condition: Fair Is patient prescribed a controlled substance at d/c from ED?: No Referrals: None,Stated [Primary Care Provider] - 1-2 days Time of Disposition: 10:29 Decision Date: 12/02/20 Decision Time: 10:30
[2020-12-02] MEDS ORDERED: LORazepam 2 MG/ML INJ IV STA (10:32)
[2020-12-02] MEDS ORDERED: POTASSIUM CHLORIDE 20 MEQ in WATER FOR INJECTION 1 100ML.BAG IVPB STA (10:37)
[2020-12-02] MEDS ORDERED: OCTREOTIDE 100 MCG/ML INJ IVP STA (10:38)
[2020-12-02] MEDS ORDERED: ONDANSETRON 4 MG/2 ML VIAL IVP PRN (10:58)
[2020-12-02] MEDS ORDERED: LACTULOSE 20 GM/30 ML CUP PO PRN (11:03)
[2020-12-02] MEDS: OCTREOTIDE 500 MCG in SODIUM CHLORIDE 0.9% 250 ML IV SCH ×2 (11:23→21:17)
[2020-12-02 12:22] LABS: ALT 28 U/L (4-34); AST 140 U/L (14-36); African American GFR (CKD) >90 (>60 ml/min/1.73 sqM); Albumin 2.8 g/dL (3.5-5.0); Alkaline Phosphatase 144 U/L (38-126); Anion Gap 9 mmol/L; Blood Urea Nitrogen 4 mg/dL (7-17); Calcium 8.1 mg/dL (8.4-10.2); Carbon Dioxide 21 mmol/L (22-30); Chloride 108 mmol/L (98-107); Glucose 84 mg/dL (74-99); Non-African American GFR(CKD) >90 (>60 ml/min/1.73 sqM); Potassium 3.8 mmol/L (3.5-5.1); Sodium 138 mmol/L (137-145); Total Bilirubin 2.1 mg/dL (0.2-1.3); Total Protein 7.1 g/dL (6.3-8.2)
--- NOTE | 2020-12-02 12:30 | P.HPIM ---
History of Present Illness H&P Date: 12/02/20 Chief Complaint: Hematemesis This is a 49-year-old female with past medical history significant for underlying alcoholic liver cirrhosis with history of small distal esophageal varices that presented to an outside emergency room in [place] after vomiting blood. Patient said that last night she was feeling sick to her stomach and then got up around 3 in the morning and vomited small amount of blood that she described as bright red. Patient felt better for a little while and subsequently vomited twice with what she describes as dark material without bright red blood. When asked refused coffee-ground she said not quite black. Patient otherwise denies any abdominal pain. She had similar presentation in June where she underwent an EGD showing a small nonbleeding distal esophageal varices with evidence of reflux esophagitis. Patient is hemodynamically stable. She is slightly tachycardic with a heart rate of 1:15. She denies fevers or chills otherwise. She said that she only drinks alcohol once a week and hasn't been a heavy drinker in her long time. Review of Systems Review of system: 14 points review of systems were obtained and were negative except to what were mentioned in the HPI. Past Medical History Additional Past Medical History / Comment(s): liver disease-patient used to get paracentesis every two weeks, patient states that she has not recieved one since dec 15, 2019, has had previous bouts of GI bleed and her last scope was in May 2020 and this was done at [facility]. She is known to have portal hypertension and esophageal bases. History of Any Multi-Drug Resistant Organisms: None Reported Past Surgical History: No Surgical Hx Reported Past Anesthesia/Blood Transfusion Reactions: No Reported Reaction Past Psychological History: No Psychological Hx Reported Smoking Status: Current every day smoker Past Alcohol Use History: Occasional, Rare Past Drug Use History: None Reported - Past Family History Father Family Medical History: No Reported History Mother Family Medical History: No Reported History Medications and Allergies Home Medications Medication Instructions Recorded Confirmed Type Multivitamins, Thera [Multivitamin 1 tab PO DAILY #30 tablet 05/14/20 12/02/20 Rx (formulary)] Lactulose [Cephulac] 20 gm PO DAILY PRN 12/02/20 12/02/20 History Pantoprazole Sodium [Protonix] 20 mg PO DAILY 12/02/20 12/02/20 History Spironolactone 25 mg PO DAILY 12/02/20 12/02/20 History Allergies Allergy/AdvReac Type Severity Reaction Status Date / Time No Known Allergies Allergy Verified 12/02/20 10:14 Physical Exam Vitals: Vital Signs Temp Pulse Resp BP Pulse Ox 12/02/20 11:29 108 H 18 125/79 96 12/02/20 09:23 98.4 F 112 H 18 135/78 97 Intake and Output 12/01/20 12/02/20 12/02/20 22:59 06:59 14:59 Other: Weight 63.503 kg General: The patient is awake and alert, in no distress Eye: there is normal conjunctiva bilaterally. Neck: The neck is supple, there is no JVD. Cardiovascular: Normal S1-S2, no S3-S4, no murmurs. Respiratory: Lungs clear to auscultation bilaterally Gastrointestinal: Abdomen is soft, nontender Musculoskeletal: There is no pedal edema. Neurological:. Speech is normal. Skin: Skin is warm and dry Results CBC & Chem 7: 12/02/20 09:52 12/02/20 09:52 Labs: Abnormal Lab Results - Last 24 Hours (Table) 12/02/20 12/02/20 Range/Units 09:52 09:52 RBC 3.21 L (3.80-5.40) m/uL Hgb 9.1 L (11.4-16.0) gm/dL Hct 29.8 L (34.0-46.0) % MCHC 30.6 L (31.0-37.0) g/dL RDW 18.6 H (11.5-15.5) % Plt Count 128 L (150-450) k/uL Lymphocytes # 0.7 L (1.0-4.8) k/uL Chloride 108 H (98-107) mmol/L Carbon Dioxide 21 L (22-30) mmol/L BUN 4 L (7-17) mg/dL Calcium 8.1 L (8.4-10.2) mg/dL Total Bilirubin 2.1 H (0.2-1.3) mg/dL AST 140 H (14-36) U/L Alkaline Phosphatase 144 H (38-126) U/L Albumin 2.8 L (3.5-5.0) g/dL Assessment and Plan Assessment: 1. Hematemesis 2. History of small distal esophageal varices with concerns about possible variceal bleed 3. Underlying alcoholic liver cirrhosis 4. Mild ascites, starting tomorrow I would adjust her spironolactone dose to 100 mg daily with Lasix 40 mg daily Today, I reviewed her medication list and lab work results. Computed tomography scan of the abdomen and pelvis at the outside hospital showed mild ascites with evidence of liver cirrhosis. No acute findings otherwise. Patient was started on IV Protonix and octreotide drip. I would change Protonix to 40 mg twice daily. GI consulted for further evaluation. Keep patient nothing by mouth for now. Gentle IV fluid hydration with normal saline at 15 minute per hour. Repeat hemoglobin in the evening and in the morning. This use as needed for hemoglobin less than 8.
[2020-12-02] MEDS ORDERED: KETOROLAC 15 MG/ML 1 ML VIAL IVP STA (13:40)
[2020-12-02] MEDS: SODIUM CHLORIDE 0.9% 1,000 ML IV SCH (13:56)
--- NOTE | 2020-12-02 15:39 | P.CONS ---
History of Present Illness - Reason for Consult Consult date: 12/02/20 GI bleed Requesting physician: Israel Reyes - Chief Complaint Hematemesis - History of Present Illness This is a 49-year-old white female who is a transfer from [facility] for complaints of nausea and vomiting that started his morning around 3 AM. States that she was having some acid reflux and heartburn prior to going to bed and woke up and had a small amount of vomit in her hands with a little bit of bright red blood. She states she vomited 4-5 more times but it was not bright red and had more of a brownish tint to it. She has a significant history of alcohol abuse and diagnosed with alcoholic cirrhosis of the liver 2 years ago. She has a history of previous ascites, she is on spironolactone at home, however states she ran out. States she has been drinking only on occasion. She has had prior episodes of hematemesis in the past and has undergone EGDs both in May of this year. She underwent an EGD on 05/13/[address] Tucker showing no active GI bleeding, small nonbleeding esophageal varices, LA grade B reflux esophagitis and small hiatal hernia. Mild antral gastritis. Late in June for concerns for upper GI bleed. She underwent an EGD on 07/03/2020 with with findings of non-small bleeding distal esophageal varices without high risk stigmata for bleeding or red wheal signs. LA grade B reflux esophagitis, small hiatal hernia, mild portal hypertensive gastropathy, no active bleeding or old blood noted. On admission WBC 6, hemoglobin 9, hematocrit 29, platelet count 128,000, total bilirubin 2.1, alkaline phosphatase 144, AST 140, ALT 28. She's not had any further vomiting since 7 AM. Denies any black stools or bright red blood in her stool. Denies any abdominal pain. Review of Systems REVIEW OF SYSTEMS: CARDIOPULMONARY: No chest pain or shortness of breath. Gastrointestinal: No abdominal pain. Complains of heartburn/acid reflux. Vomiting with small amount of bright red blood.. No rectal bleeding, or melena. GENITOURINARY: No dysuria or hematuria. MUSCULOSKELETAL: Reports normal range of motion., Joint pain. SKIN: No rashes. No jaundice. ENDOCRINE: No chills, fevers. No excessive weight gain or loss. No polydipsia or polyuria. PSYCHIATRIC: Unremarkable. NEUROLOGY: No change in mental status. Denies dizziness, headache. ENT: Vision unremarkable. CONSTITUTIONAL: No recent weight loss. No fever, chills, night sweats. Past Medical History Additional Past Medical History / Comment(s): liver disease-patient used to get paracentesis every two weeks, patient states that she has not recieved one since dec 15, 2019, has had previous bouts of GI bleed and her last scope was in May 2020 and this was done at [facility]. She is known to have portal hypertension and esophageal bases. History of Any Multi-Drug Resistant Organisms: None Reported Past Surgical History: No Surgical Hx Reported Past Anesthesia/Blood Transfusion Reactions: No Reported Reaction Past Psychological History: No Psychological Hx Reported Smoking Status: Current every day smoker Past Alcohol Use History: Occasional, Rare Past Drug Use History: None Reported - Past Family History Father Family Medical History: No Reported History Mother Family Medical History: No Reported History Medications and Allergies Home Medications Medication Instructions Recorded Confirmed Type Multivitamins, Thera [Multivitamin 1 tab PO DAILY #30 tablet 05/14/20 12/02/20 Rx (formulary)] Lactulose [Cephulac] 20 gm PO DAILY PRN 12/02/20 12/02/20 History Pantoprazole Sodium [Protonix] 20 mg PO DAILY 12/02/20 12/02/20 History Spironolactone 25 mg PO DAILY 12/02/20 12/02/20 History Allergies Allergy/AdvReac Type Severity Reaction Status Date / Time No Known Allergies Allergy Verified 12/02/20 10:14 Physical Exam Vitals: Vital Signs Temp Pulse Resp BP Pulse Ox 12/02/20 11:29 108 H 18 125/79 96 12/02/20 09:23 98.4 F 112 H 18 135/78 97 Intake and Output 12/01/20 12/02/20 12/02/20 22:59 06:59 14:59 Other: Weight 63.503 kg General appearance: The patient is alert, oriented, appears in no acute distress. HET: Head is normocephalic and atraumatic. Conjunctiva pink. Sclera anicteric. Neck: Supple without lymphadenopathy. Trachea midline. Heart: S1 S2. Regular rate and rhythm. Lungs: Clear to auscultation. Abdomen: Soft, nontender, nondistended with bowel sounds. No guarding or rigidity. Skin: No rashes. No jaundice. Extremities: Normal skin color and turgor. No pedal edema. Neurological: No focal deficits. Alert and oriented 3.. Results CBC & Chem 7: 12/02/20 09:52 12/02/20 09:52 Labs: Abnormal Lab Results - Last 24 Hours (Table) 12/02/20 12/02/20 Range/Units 09:52 09:52 RBC 3.21 L (3.80-5.40) m/uL Hgb 9.1 L (11.4-16.0) gm/dL Hct 29.8 L (34.0-46.0) % MCHC 30.6 L (31.0-37.0) g/dL RDW 18.6 H (11.5-15.5) % Plt Count 128 L (150-450) k/uL Lymphocytes # 0.7 L (1.0-4.8) k/uL Chloride 108 H (98-107) mmol/L Carbon Dioxide 21 L (22-30) mmol/L BUN 4 L (7-17) mg/dL Calcium 8.1 L (8.4-10.2) mg/dL Total Bilirubin 2.1 H (0.2-1.3) mg/dL AST 140 H (14-36) U/L Alkaline Phosphatase 144 H (38-126) U/L Albumin 2.8 L (3.5-5.0) g/dL Assessment and Plan (1) Hematemesis Narrative/Plan: 49-year-old female who was transferred from [facility] with complaints of nausea and vomiting that began at 3 AM this morning with a small amount of bright red blood. Patient states she had 4-5 more episodes of vomiting which were more of a dark brown. She's had no further bleeding or vomiting since 7 AM. She denies any associated abdominal pain, denies any black stool. She has a significant history of alcohol abuse, currently drinking still. She was diagnosed with alcoholic cirrhosis of the liver approximately 2 years ago. She underwent EGD in May and June of this year showing small nonbleeding esophageal varices not requiring any banding. Likely were dealing with recurrent upper GI bleed related to esophageal varices. Will proceed with EGD tomorrow. Current Visit: No Status: Acute Code(s): K92.0 - HEMATEMESIS SNOMED Code(s): 3446877 (2) Esophageal varices Current Visit: Yes Status: Acute Code(s): I85.00 - ESOPHAGEAL VARICES WITHOUT BLEEDING SNOMED Code(s): 65967380 (3) Alcohol abuse Current Visit: Yes Status: Acute Code(s): F10.10 - ALCOHOL ABUSE, UNCOMPLICATED SNOMED Code(s): 15479436 (4) Alcoholic cirrhosis of liver Current Visit: Yes Status: Acute Code(s): K70.30 - ALCOHOLIC CIRRHOSIS OF LIVER WITHOUT ASCITES SNOMED Code(s): 781189914 Plan: 1. Continue symptomatic and supportive care 2. Clear liquid diet, nothing by mouth after midnight 3. Continue spironolactone 4. Daily CBC, transfuse for hemoglobin less than 7 5. Alcohol abstinence 6. Protonix 40 mg twice a day 7. Empiric antibiotics with Levaquin 500 mg daily for possible SBP 8. Will proceed with EGD tomorrow. Procedure discussed with patient including risks and benefits, she is willing to proceed. Thank you for this consultation, we will continue to follow. Dr. Petr Tucker I agree with the dictator's note, documented as a scribe by Avis Roach.
[2020-12-02] MEDS: LEVOFLOXACIN 500MG-D5W PMX 500 MG in DEXTROSE/WATER 1 100ML.BAG IVPB SCH (15:53)
[2020-12-02 16:35] LABS: Anisocytosis Slight; Basophils % (A) 1 %; Eosinophils # (A) 0.1 k/uL (0-0.7); Eosinophils % (A) 1 %; HCT 28.5 % (34.0-46.0); HGB 8.9 gm/dL (11.4-16.0); Hypochromasia Marked; Lymphocytes % (A) 16 %; MCH 29.3 pg (25.0-35.0); MCHC 31.3 g/dL (31.0-37.0); MCV 93.5 fL (80.0-100.0); Macrocytosis Slight; Mean Platelet Volume 9.8; Monocytes # (A) 0.4 k/uL (0-1.0); Monocytes % (A) 6 %; Neutrophils # (A) 4.4 k/uL (1.3-7.7); Neutrophils % (A) 75 %; Platelet Count 129 k/uL (150-450); RBC 3.05 m/uL (3.80-5.40); RDW 18.7 % (11.5-15.5); WBC 5.9 k/uL (3.8-10.6)
[2020-12-02 16:41] LABS: INR 1.5 (<1.2); Prothrombin Time 15.5 sec (9.0-12.0)
[2020-12-02] MEDS: ACETAMINOPHEN TAB 325 MG TAB PO PRN (17:37)
[2020-12-02] MEDS: PANTOPRAZOLE 40 MG/10 ML VIAL IV SCH (20:12)
[2020-12-02] MEDS: MELATONIN 5 MG TABLET PO PRN (23:10)
[2020-12-03] MEDS: FUROSEMIDE 40 MG TAB PO SCH (04:43)
[2020-12-03] MEDS: MULTIVITAMINS, THERA 1 EACH TAB PO SCH (04:43)
[2020-12-03] MEDS: SPIRONOLACTONE 25 MG TAB PO SCH (04:43)
[2020-12-03] MEDS: OCTREOTIDE 500 MCG in SODIUM CHLORIDE 0.9% 250 ML IV SCH ×2 (07:08→19:23)
[2020-12-03] MEDS: PANTOPRAZOLE 40 MG/10 ML VIAL IV SCH ×2 (08:02→19:37)
[2020-12-03] MEDS: SODIUM CHLORIDE 0.9% 1,000 ML IV SCH (08:05)
[2020-12-03 08:14] LABS: Anisocytosis Slight; Basophils % (A) 1 %; Eosinophils # (A) 0.2 k/uL (0-0.7); Eosinophils % (A) 3 %; HCT 28.7 % (34.0-46.0); HGB 8.6 gm/dL (11.4-16.0); Hypochromasia Marked; Lymphocytes # (A) 0.7 k/uL (1.0-4.8); Lymphocytes % (A) 10 %; MCH 28.6 pg (25.0-35.0); MCHC 30.1 g/dL (31.0-37.0); MCV 95.1 fL (80.0-100.0); Macrocytosis Slight; Mean Platelet Volume 10.2; Monocytes # (A) 0.5 k/uL (0-1.0); Monocytes % (A) 7 %; Neutrophils # (A) 5.1 k/uL (1.3-7.7); Neutrophils % (A) 78 %; Platelet Count 133 k/uL (150-450); RBC 3.02 m/uL (3.80-5.40); RDW 18.2 % (11.5-15.5); WBC 6.5 k/uL (3.8-10.6)
[2020-12-03] MEDS ORDERED: IV FLUID CONTINUATION 700 ML IV ONE (08:17)
[2020-12-03] MEDS ORDERED: LIDOCAINE 1% INJ 10MG/ML (20 ML MDV) ONE (08:17)
[2020-12-03] MEDS ORDERED: PROPOFOL 10 MG/ML 20 ML VIAL IV ONE (08:17)
--- NOTE | 2020-12-03 08:29 | P.PCN ---
Date of Procedure: 12/03/20 Procedure(s) Performed: BRIEF HISTORY: Patient is a 49-year-old, pleasant, white female with history of alcohol cirrhosis of the liver admitted hospital with acute upper GI bleed. She had several episodes of hematemesis. He was 11 was 9 g/dL and today 3.3 g/dL. Last upper endoscopy was done in June of this year that showed small esophageal varices and portal hypertensive gastropathy. PROCEDURE PERFORMED: Esophagogastroduodenoscopy. PREOPERATIVE DIAGNOSIS: Acute upper GI bleed. IV sedation per anesthesia. PROCEDURE: After informed consent was obtained, the patient was brought into the endoscopy unit. IV sedation was administered by Anesthesia under continuous monitoring. Initially the Olympus GIF-140 video endoscope was inserted into the mouth. Esophagus intubated without any difficulty. It was gradually advanced into the stomach and duodenum and carefully examined. No active bleeding noted. The bulb and the second part of the duodenum appeared normal. The scope at this time was withdrawn to the stomach, adequately insufflated with air, and upon careful examination, mucosa of the antrum, appeared normal. There was changes of mild portal hypertensive gastropathy involving the mucosa of the body, cardia . There was small gastric fundal varices identified with no stigmata of recent bleed. The scope was then withdrawn into the esophagus. Mall hiatal hernia noted. The GE junction was located at 39 cm from the incisors. The esophagus appeared normal. There were no erosions or ulcerations seen, small nonbleeding esophageal varices identified and the patient tolerated the procedure well. IMPRESSION: 1. Small nonbleeding esophageal varices and gastric fundal varices. 2. Mild portal hypertensive gastropathy 3. Sliding Hiatal hernia. 4. No evidence of active upper GI bleed RECOMMENDATIONS: The findings of this examination were discussed with the patient. Diet will be advanced as tolerated. Monitor CBC daily..
[2020-12-03 08:35] LABS: Calcium 7.8 mg/dL (8.4-10.2); Magnesium 1.1 mg/dL (1.6-2.3); Potassium 3.9 mmol/L (3.5-5.1)
[2020-12-03] MEDS ORDERED: SPIRONOLACTONE 25 MG TAB PO SCH (09:00)
[2020-12-03] MEDS ORDERED: PANTOPRAZOLE 40 MG/10 ML VIAL IV SCH (09:00)
[2020-12-03] MEDS: ACETAMINOPHEN TAB 325 MG TAB PO PRN ×2 (09:39→19:36)
--- NOTE | 2020-12-03 12:04 | P.PN ---
Subjective Progress Note Date: 12/03/20 Patient is doing fairly well today. She is complaining of some bloating in her stomach. She underwent EGD this morning. No acute events overnight. Objective - Vital Signs Vital signs: Vital Signs Temp 98.7 F 12/03/20 08:00 Pulse 95 12/03/20 11:35 Resp 16 12/03/20 11:35 BP 123/76 12/03/20 11:35 Pulse Ox 94 L 12/03/20 11:35 Intake & Output 12/02/20 12/03/20 12/03/20 18:59 06:59 18:59 Intake Total 247.5 346.25 Output Total 600 500 Balance -600 247.5 -153.75 Weight 63.503 kg 67.7 kg Intake: IV 100 Intake, IV Titration 247.5 246.25 Amount Octreotide 500 mcg In 247.5 246.25 Sodium Chloride 0.9% 250 ml @ 50 MCG/HR 25 mls/hr IV .Q10H BLAYNE Rx#: [id number] Output: Urine 600 500 Other: Voiding Method Toilet Toilet # Voids 1 1 - Exam General: The patient is awake and alert, in no distress Eye: there is normal conjunctiva bilaterally. Neck: The neck is supple, there is no JVD. Cardiovascular: Normal S1-S2, no S3-S4, no murmurs. Respiratory: Lungs clear to auscultation bilaterally Gastrointestinal: Abdomen is soft, nontender Musculoskeletal: There is no pedal edema. Neurological:. Speech is normal. Skin: Skin is warm and dry - Labs CBC & Chem 7: 12/03/20 07:30 12/03/20 07:30 Labs: Abnormal Lab Results - Last 24 Hours (Table) 12/02/20 12/02/20 12/02/20 Range/Units 09:52 16:15 16:15 RBC 3.05 L (3.80-5.40) m/uL Hgb 8.9 L (11.4-16.0) gm/dL Hct 28.5 L (34.0-46.0) % MCHC (31.0-37.0) g/dL RDW 18.7 H (11.5-15.5) % Plt Count 129 L (150-450) k/uL Lymphocytes # (1.0-4.8) k/uL PT 15.5 H (9.0-12.0) sec INR 1.5 H (<1.2) Sodium (137-145) mmol/L Chloride 108 H (98-107) mmol/L Carbon Dioxide 21 L (22-30) mmol/L BUN 4 L (7-17) mg/dL Calcium 8.1 L (8.4-10.2) mg/dL Magnesium (1.6-2.3) mg/dL Total Bilirubin 2.1 H (0.2-1.3) mg/dL AST 140 H (14-36) U/L Alkaline Phosphatase 144 H (38-126) U/L Albumin 2.8 L (3.5-5.0) g/dL 12/03/20 12/03/20 Range/Units 07:30 07:30 RBC 3.02 L (3.80-5.40) m/uL Hgb 8.6 L (11.4-16.0) gm/dL Hct 28.7 L (34.0-46.0) % MCHC 30.1 L (31.0-37.0) g/dL RDW 18.2 H (11.5-15.5) % Plt Count 133 L (150-450) k/uL Lymphocytes # 0.7 L (1.0-4.8) k/uL PT (9.0-12.0) sec INR (<1.2) Sodium 134 L (137-145) mmol/L Chloride (98-107) mmol/L Carbon Dioxide (22-30) mmol/L BUN 5 L (7-17) mg/dL Calcium 7.8 L (8.4-10.2) mg/dL Magnesium 1.1 L (1.6-2.3) mg/dL Total Bilirubin (0.2-1.3) mg/dL AST (14-36) U/L Alkaline Phosphatase (38-126) U/L Albumin (3.5-5.0) g/dL Assessment and Plan Assessment: This is a 49-year-old female with past medical history noted below who presented to the emergency room after vomiting a small amount of bright red blood at home. Patient was evaluated in the ER and admitted to the hospital for further management of her medical problems noted below. 1. Hematemesis 2. History of small distal esophageal varices with concerns about possible variceal bleed 3. Underlying alcoholic liver cirrhosis 4. Mild ascites, starting tomorrow I would adjust her spironolactone dose to 100 mg daily with Lasix 40 mg daily 5. Hypomagnesemia, replacement ordered Patient was seen and evaluated by GI. She underwent EGD showing a small nonbleeding esophageal varices and gastric fundal varices with no evidence of active upper GI bleed. She was allowed to continue regular diet. Continue Protonix twice daily. Repeat lab work in the morning. Anticipate discharge home tomorrow.
[2020-12-03] MEDS: MAGNESIUM OXIDE 400 MG TAB PO SCH ×2 (12:54→19:37)
[2020-12-03] MEDS: MAGNESIUM SULFATE-D5W PMX 1 GM in DEXTROSE/WATER 1 100ML.BAG IVPB SCH ×2 (12:54→14:04)
[2020-12-03] MEDS: LEVOFLOXACIN 500MG-D5W PMX 500 MG in DEXTROSE/WATER 1 100ML.BAG IVPB SCH (15:36)
[2020-12-03] MEDS ORDERED: NICOTINE 14MG/24HR PATCH TRANSDERM STA (18:16)
[2020-12-03] MEDS: MELATONIN 5 MG TABLET PO PRN (19:36)
[2020-12-04 03:40] VITALS: TEMP 98.1
[2020-12-04 07:48] VITALS: BP 122/73; PULSE 89; RESP 16
[2020-12-04] MEDS: MAGNESIUM OXIDE 400 MG TAB PO SCH (07:53)
[2020-12-04] MEDS: SPIRONOLACTONE 25 MG TAB PO SCH (07:53)
[2020-12-04] MEDS: PANTOPRAZOLE 40 MG/10 ML VIAL IV SCH (07:53)
[2020-12-04] MEDS: MULTIVITAMINS, THERA 1 EACH TAB PO SCH (07:53)
[2020-12-04] MEDS: ACETAMINOPHEN TAB 325 MG TAB PO PRN (07:53)
[2020-12-04] MEDS: FUROSEMIDE 40 MG TAB PO SCH (07:53)
[2020-12-04 08:26] LABS: Calcium 8.2 mg/dL (8.4-10.2); Magnesium 1.7 mg/dL (1.6-2.3); Potassium 3.7 mmol/L (3.5-5.1)
[2020-12-04 08:34] LABS: Anisocytosis Slight; Basophils % (A) 1 %; Eosinophils # (A) 0.2 k/uL (0-0.7); Eosinophils % (A) 3 %; HCT 28.7 % (34.0-46.0); HGB 8.9 gm/dL (11.4-16.0); Hypochromasia Marked; Lymphocytes # (A) 0.7 k/uL (1.0-4.8); Lymphocytes % (A) 12 %; MCH 28.9 pg (25.0-35.0); MCV 93.2 fL (80.0-100.0); Mean Platelet Volume 9.1; Monocytes # (A) 0.4 k/uL (0-1.0); Monocytes % (A) 7 %; Neutrophils # (A) 4.8 k/uL (1.3-7.7); Neutrophils % (A) 76 %; Platelet Count 155 k/uL (150-450); RBC 3.08 m/uL (3.80-5.40); RDW 18.7 % (11.5-15.5); WBC 6.2 k/uL (3.8-10.6)
[2020-12-04] MEDS ORDERED: NICOTINE 14MG/24HR PATCH TRANSDERM SCH (09:00)
--- NOTE | 2020-12-04 10:28 | PN ---
PROGRESS NOTE DATE OF DICTATION: 12/04/2020 Patient is a 49-year-old white female with history of heavy alcohol abuse, admitted to the hospital with acute upper GI bleed. She underwent an upper endoscopy yesterday that showed nonbleeding small esophageal and gastric varices and mild portal hypertensive gastropathy. The patient is clinically doing well. She denies any further episodes of bleeding. On a regular diet, tolerating well. PHYSICAL EXAMINATION: She appears comfortable. VITAL SIGNS: Stable. Blood pressure 122/73, pulse rate 89, temperature 98.1. HEENT EXAMINATION: Unremarkable. Conjunctivae pink. Sclerae anicteric. Oral cavity no lesions. NECK: No JVD. No lymph node enlargement. CHEST: Clear to auscultation. HEART: Regular rate and rhythm. ABDOMEN: Soft. Bowel sounds are positive. No organomegaly. EXTREMITIES: No pedal edema. SKIN: No rashes. NEURO: Alert and oriented x3. No focal deficits. LABS: Labs done from today: WBC 6.2, hemoglobin 8.9, platelets normal. Basic metabolic panel is within normal limits. IMPRESSION: 1. Acute upper gastrointestinal bleed, status post EGD yesterday that showed nonbleeding esophageal and gastric varices and portal hypertensive gastropathy. The patient has no further bleeding. Hemoglobin remains stable. 2. History of heavy alcohol abuse. Quit drinking a few months ago. 3. Elevated serum transaminases and mild jaundice all related to alcoholic liver disease. 4. Hypomagnesemia. RECOMMENDATIONS: 1. Continue with low-salt diet. 2. Monitor CBC daily. 3. Will start her on propranolol 10 mg 3 times daily to prevent recurrent variceal bleeding in the future. 4. Abstinence from alcohol. 5. Patient to be discharged home today if labs are all right, and she can follow up in office in 3-4 weeks. MMODL / IJN: [id number] /
--- NOTE | 2020-12-04 10:53 | P.DS ---
Providers Date of admission: 12/02/20 10:59 Expected date of discharge: 12/04/20 Attending physician: Jimenez Solis Consults: 12/02/20 11:00 Consult Physician Urgent Consulting Provider: Marti Tucker Consult Reason/Comments: gi bleed, hx esophageal varices Do you want consulting provider notified?: Yes Primary care physician: Stated None Hospital Course: This is a 49-year-old female with past medical history noted below who presented to the emergency room after vomiting a small amount of bright red blood at home. Patient was evaluated in the ER and admitted to the hospital for further management of her medical problems noted below. 1. Hematemesis 2. History of small distal esophageal varices with concerns about possible variceal bleed 3. Underlying alcoholic liver cirrhosis 4. Mild ascites 5. Hypomagnesemia, replaced Patient was seen and evaluated by GI. She underwent EGD showing a small nonbleeding esophageal varices and gastric fundal varices with no evidence of active upper GI bleed. She was allowed to continue regular diet. Propranolol 10 mg 3 times a day added to her regimen. Also Lasix 40 mg daily and spironolactone 50 mg daily to prevent ascites. Continue magnesium supplements. Repeat lab work in one week. Follow-up with PCP as directed. Patient was seen and evaluated by me on the day of discharge. She denies any abdominal pain or further bleeding. She verbalized understanding of the importance of alcohol cessation. She will be discharged home in a stable condition. Patient Condition at Discharge: Fair Plan - Discharge Summary Discharge Rx Participant: No New Discharge Prescriptions: New Propranolol [Inderal] 10 mg PO TID #90 tab Spironolactone [Aldactone] 50 mg PO DAILY #30 tab Furosemide [Lasix] 40 mg PO DAILY #30 tab Magnesium Oxide [Mag-Ox] 400 mg PO DAILY #30 tab Continue Multivitamins, Thera [Multivitamin (formulary)] 1 tab PO DAILY #30 tablet Lactulose [Cephulac] 20 gm PO DAILY PRN PRN Reason: Constipation Pantoprazole Sodium [Protonix] 20 mg PO DAILY Discontinued Spironolactone 25 mg PO DAILY Discharge Medication List Multivitamins, Thera [Multivitamin (formulary)] 1 tab PO DAILY #30 tablet 05/14/20 [Rx] Lactulose [Cephulac] 20 gm PO DAILY PRN 12/02/20 [History] Pantoprazole Sodium [Protonix] 20 mg PO DAILY 12/02/20 [History] Furosemide [Lasix] 40 mg PO DAILY #30 tab 12/04/20 [Rx] Magnesium Oxide [Mag-Ox] 400 mg PO DAILY #30 tab 12/04/20 [Rx] Propranolol [Inderal] 10 mg PO TID #90 tab 12/04/20 [Rx] Spironolactone [Aldactone] 50 mg PO DAILY #30 tab 12/04/20 [Rx] Follow up Appointment(s)/Referral(s): Marti Tucker MD [STAFF PHYSICIAN] - 1 Week None,Stated [Primary Care Provider] - 1-2 days Patient Instructions/Handouts: Esophageal Varices (DC) Discharge Disposition: HOME SELF-CARE
== END 2020-12-04 12:33 | disposition home or self-care (01) | DRG 432 ==
LOC: EC 09:21 → 3SCARD 10:59
PROVIDERS: ADMIT Internal Medicine; ATTEND Internal Medicine
PROC: 0DJ08ZZ Inspection of Upper Intestinal Tract, Via Natural or Artificial Opening Endoscopic (ICD-10-PCS; principal; 2020-12-03 08:00)
DX: K70.31 Alcoholic cirrhosis of liver with ascites (principal); I85.11 Secondary esophageal varices with bleeding; K92.0 Hematemesis; K76.6 Portal hypertension; F17.200 Nicotine dependence, unspecified, uncomplicated; K76.0 Fatty (change of) liver, not elsewhere classified; K80.20 Calculus of gallbladder without cholecystitis without obstruction; F10.10 Alcohol abuse, uncomplicated; K21.00 Gastro-esophageal reflux disease with esophagitis, without bleeding; K29.70 Gastritis, unspecified, without bleeding; K44.9 Diaphragmatic hernia without obstruction or gangrene; K31.89 Other diseases of stomach and duodenum; E83.42 Hypomagnesemia
CPT/HCPCS: 36415; 43235; 80048; 80053; 81025; 83735; 85025; 85610; 86850; 86900; 86901; 93005; 96360; 99285